=== PATIENT | male | born 1955 | race Caucasian/White ===

== ENCOUNTER 2020-08-22 07:32 | Outpatient (REF) | payer MEDICARE, SELFPAY ==
[2020-08-22 10:37] LABS: Alanine Aminotransferase 31 U/L (0-40); Aspartate Amino Transferase 36 U/L (5-37)
== END 2020-08-22 07:33 | disposition home or self-care (01) ==
LOC: HO.10HDL 07:32
PROVIDERS: Visit Provider Family Medicine
DX: R79.89 Other specified abnormal findings of blood chemistry (principal)
CPT/HCPCS: 36415; 84450; 84460

== ENCOUNTER 2020-11-14 09:21 | Outpatient (REF) | payer MEDICARE, SELFPAY ==
[2020-11-14 10:59] LABS: Alanine Aminotransferase 49 U/L (0-40); Anion Gap 15 (12-20); Blood Urea Nitrogen 13 mg/dL (9-16); Carbon Dioxide 24 mmol/L (22-29); Chloride 104 mmol/L (96-108); Estimated Glomerular Filt Rate > 60; Potassium 3.2 mmol/L (3.3-5.1); Sodium 140 mmol/L (135-145)
== END 2020-11-14 09:22 | disposition home or self-care (01) ==
LOC: HO.10HDL 09:21
PROVIDERS: Visit Provider Family Medicine
DX: I10 Essential (primary) hypertension (principal); E78.00 Pure hypercholesterolemia, unspecified; M10.9 Gout, unspecified; Z79.899 Other long term (current) drug therapy
CPT/HCPCS: 36415; 80051; 82550; 82565; 84460; 84520; 84550

== ENCOUNTER → 2021-03-05 07:00 | Outpatient (REF) | payer MEDICARE, SELFPAY ==
--- NOTE | 2021-03-05 | HM_ITS ---
Patient was monitored for total of 2 days and 22 hours. Baseline of normal sinus rhythm with average heart rate of 95 beats per minute with max heart 133 beats per minute No episodes of atrial fibrillation noted. Multiple short runs of SVT noted longest of 14 beats are consistent with SVT. Overall 1673 PACs with total burden of 0.42% consistent with rare PACs No patient reported events MTDD
== END ==
LOC: HO.CARD 07:00
PROVIDERS: PCP Family Medicine; Visit Provider Family Medicine
DX: I49.1 Atrial premature depolarization (principal)
CPT/HCPCS: 93242

== ENCOUNTER 2021-08-21 07:44 | Outpatient (REF) | payer MEDICARE, SELFPAY ==
[2021-08-21 10:27] LABS: Anion Gap 14 (12-20); Blood Urea Nitrogen 18 mg/dL (9-16); Carbon Dioxide 26 mmol/L (22-29); Chloride 105 mmol/L (96-108); Estimated Glomerular Filt Rate > 60; Potassium 3.2 mmol/L (3.3-5.1); Sodium 142 mmol/L (135-145)
== END 2021-08-21 07:45 | disposition home or self-care (01) ==
LOC: HO.10HDL 07:44
PROVIDERS: Visit Provider Family Medicine
DX: I10 Essential (primary) hypertension (principal)
CPT/HCPCS: 36415; 80051; 82565; 84520

== ENCOUNTER 2021-08-25 18:28 | Emergency (ER) | payer MEDICARE, SELFPAY ==
--- NOTE | ~2021-08-25 | CT_ITS ---
EXAMINATION: CT ABDOMEN AND PELVIS WITHOUT CONTRAST CLINICAL INFORMATION: Left inguinal hernia, tender COMPARISON: None TECHNIQUE: Multidetector volumetric imaging was performed from the superior aspect of the liver through the pubic symphysis. Sagittal and coronal reformatted images were obtained on the technologist's workstation. This CT examination was performed using dose optimization techniques as appropriate, variously including the following: *Automated exposure control *Adjustment of mA and/or kV according to patient size (this includes techniques or standardized protocols for targeted exams where dose is matched to indication/reason for exam; i.e. extremities or head) *Use of iterative reconstruction technique DLP: 583 mGy-cm FINDINGS: LUNG BASES: The visualized lung bases are unremarkable. LIVER, GALLBLADDER, AND BILIARY TREE: The liver is normal in size, shape, and attenuation. Subcentimeter hypodensity in the anterior liver is too small to characterize, suggestive of a cyst. No biliary ductal dilatation is present. The gallbladder is unremarkable with no evidence of radiopaque gallstones, gallbladder wall thickening, or obvious pericholecystic inflammatory changes. PANCREAS: A couple tiny pancreatic calcifications are noted. SPLEEN: Unremarkable. ADRENAL GLANDS: Unremarkable. KIDNEYS AND URETERS: No hydronephrosis or obstructing calculus bilaterally. Punctate calculus is noted in the lower left kidney. BLADDER: Unremarkable. GASTROINTESTINAL TRACT: There is suggestion of a small hiatal hernia. No evidence of bowel obstruction. No abnormal bowel wall thickening is seen. Short segment of sigmoid colon extends into a left inguinal hernia. No free fluid or free air is seen. ABDOMINAL WALL: Left inguinal hernia contains fat with mild stranding as well as a short segment of sigmoid colon. Fat-containing right inguinal hernia noted. LYMPH NODES: Normal. VASCULAR: Scattered atherosclerotic calcifications are noted. PELVIC VISCERA: Unremarkable. OSSEOUS STRUCTURES: Degenerative change is present in the spine at L1-L2 with disc space narrowing and vacuum disc phenomenon along with endplate osteophytes. CT/CT abdomen pelvis wo con IMPRESSION: 1. Left inguinal hernia containing a short segment of sigmoid colon. No associated obstruction or bowel wall thickening, though there is mild stranding within the fat. 2. Fat-containing right inguinal hernia. 3. Punctate left renal calculus. No hydronephrosis. Fleischner guidelines were followed.
[2021-08-25 18:50] VITALS: BP 130/83; PULSE 92; RESP 20; TEMP 37.3; O2SAT 96; BMI 28.1
[2021-08-25 20:04] LABS: MANUAL DIFF FLAG NO
[2021-08-25 20:05] LABS: Basophils Absolute Auto 0.1 X10*3/uL (0.0-0.2); Basophils Percent Auto 0.9 % (0-2); Eosinophils Absolute Auto 0.3 X10*3/uL (0.0-0.4); Hematocrit 39.2 % (42.0-52.0); Imm Gran Abs Auto 0.03 X10*3/uL (0.00-0.03); Imm Gran Pct Auto 0.2 % (0.0-0.4); Lymphocytes Absolute Auto 3.7 X10*3/uL (1.2-4.9); Lymphocytes Percent Auto 29.3 % (20-40); Mean Corpuscular HGB Conc 35.7 g/dl (31.0-36.0); Mean Corpuscular Hemoglobin 33.9 pg (27.0-33.0); Mean Corpuscular Volume 94.9 fL (80.0-98.0); Mean Platelet Volume 8.6 fL (9.4-12.4); Monocytes Absolute Auto 0.8 X10*3/uL (0.1-1.2); Monocytes Percent Auto 6.2 % (2-11); Neutrophils Absolute Auto 7.8 x10*3/uL (2.0-8.3); Neutrophils Percent Auto 61.4 % (45-73); Platelet Count 159 X10*3/uL (160-400); Red Blood Count 4.13 X10*6/uL (4.60-5.80); Red Cell Distribution Width 13.7 % (11.0-16.0); White Blood Count 12.7 X10*3/uL (4.8-10.8)
[2021-08-25 20:06] LABS: Appearance Urine CLEAR; Color Urine YELLOW; Glucose Urine UA NEG (NEG); Leukocyte Esterase Urine TRACE (NEG); Nitrite Urine NEG (NEG); PH 5.5 (5.0-8.0); UACC Culture Trigger YES; Urine Blood NEG (NEG); Urine Ketones NEG (NEG); Urine Protein NEG (NEG-TRACE)
[2021-08-25 20:17] LABS: RBC Urine 0 /HPF (0); WBC Urine 0 /HPF (0-4)
[2021-08-25 20:20] LABS: Alanine Aminotransferase 29 U/L (0-40); Albumin Level 4.5 g/dL (3.5-5.0); Alkaline Phosphatase 86 U/L (39-117); Anion Gap 14 (12-20); Aspartate Amino Transferase 39 U/L (5-37); Bilirubin Total 0.6 mg/dL (0.0-1.0); Blood Urea Nitrogen 12 mg/dL (9-16); Calcium 9.3 mg/dL (8.4-10.2); Carbon Dioxide 29 mmol/L (22-29); Chloride 101 mmol/L (96-108); Creatinine Clr Calc Pharmacy 49.8; Estimated Glomerular Filt Rate 48; Glucose Random 139 mg/dL (60-115); Potassium 3.4 mmol/L (3.3-5.1); Sodium 141 mmol/L (135-145); Total Protein 7.4 g/dL (6.5-8.0)
--- NOTE | 2021-08-25 22:41 | ED_ITS ---
HPI - Male Genitourinary General Chief complaint: Abdominal Pain Stated complaint: hernia Time Seen by Provider: 08/25/21 22:33 Source: patient Mode of arrival: ambulatory Limitations: no limitations History of Present Illness HPI Narrative: Patient's history of left inguinal hernia been repaired about 16 years ago no mesh was placed comes here as for last 2 days noticed the lump is coming back and was little tender prior to arrival today patient able to reduce it no significant pain now. No nausea no vomiting Related Data Allergies Allergy/AdvReac Type Severity Reaction Status Date / Time lisinopril [LISINOPRIL] Allergy Unknown RASH Verified 08/25/21 18:57 prednisone [PREDNISONE] Allergy Unknown INSOMNIA, Verified 08/25/21 18:57 insominia Review of Systems Review of Systems: Yes all other systems are reviewed and are negative [facility] Past Medical History Medical History ETOH abuse Gout High cholesterol HTN (hypertension) Surgical History H/O hernia repair Social History Social History Advance Directives: No Advance Directives Information Provided: No Physical Exam Vital Signs: Vital Signs: Last Vital Signs Temp 99.1 F 08/25/21 18:50 Pulse 84 08/25/21 23:42 Resp 16 08/25/21 23:42 BP 141/83 H 08/25/21 23:42 Pulse Ox 99 08/25/21 23:42 BMI result Body Mass Index 28.1 Appearance: Alert. Oriented X3. No acute distress. ETOH Eyes: PERRLA, No Nystagmus ENT: Pharynx normal. Oral Mucosa moist Neck: Normal inspection. Neck supple. CVS: Normal heart rate and rhythm. Pulses normal. Respiratory: No respiratory distress. Equal air entry bilateral, no wheezing/rales/rhonchi Abdomen: Soft and nontender. Bowel sounds are present, no mass palpable, no CVA tenderness small reducible left inguinal direct hernia no tenderness noticed skin color intact Skin: Skin warm and dry. Normal skin color. Normal skin turgor. Extremities: No lower extremity edema. No calf tenderness Neuro: Oriented X 3. MDM - Male Genitourinary MDM Narrative Medical decision making narrative: Patient with small left direct inguinal hernia which is reducible CT scan showed small segment of sigmoid colon with slight stranding of the fat around it. Patient denies significant pain at this time discharge patient home advised to follow-up with surgeon Lab Data Attestation: I reviewed the patient's lab results. Result diagrams: 08/25/21 20:00 08/25/21 20:00 Labs: Lab Results 08/25/21 08/25/21 08/25/21 Range/Units 19:01 20:00 20:00 WBC 12.7 H (4.8-10.8) X10*3/uL RBC 4.13 L (4.60-5.80) X10*6/uL Hgb 14.0 (14.0-18.0) g/dl Hct 39.2 L (42.0-52.0) % MCV 94.9 (80.0-98.0) fL MCH 33.9 H (27.0-33.0) pg MCHC 35.7 (31.0-36.0) g/dl RDW 13.7 (11.0-16.0) % Plt Count 159 L (160-400) X10*3/uL MPV 8.6 L (9.4-12.4) fL Immature Gran % (Auto) 0.2 (0.0-0.4) % Neut % (Auto) 61.4 (45-73) % Lymph % (Auto) 29.3 (20-40) % [place] % (Auto) 6.2 (2-11) % Eos % (Auto) 2.0 (0-4) % Baso % (Auto) 0.9 (0-2) % Lymph # (Auto) 3.7 (1.2-4.9) X10*3/uL [place] # (Auto) 0.8 (0.1-1.2) X10*3/uL Eos # (Auto) 0.3 (0.0-0.4) X10*3/uL Baso # (Auto) 0.1 (0.0-0.2) X10*3/uL Abs Immat Gran (auto) 0.03 (0.00-0.03) X10*3/uL Absolute Neuts (auto) 7.8 (2.0-8.3) x10*3/uL Absolute Nucleated RBC 0.000 (0.0-0.012) X10*3/uL Nucleated RBC % (auto) 0.0 (0.0-0.2) /100WBC Sodium 141 (135-145) mmol/L Potassium 3.4 (3.3-5.1) mmol/L Chloride 101 (96-108) mmol/L Carbon Dioxide 29 (22-29) mmol/L Anion Gap 14 (12-20) BUN 12 (9-16) mg/dL Creatinine 1.45 H (0.5-1.4) mg/dL Estim Creat Clear Calc 49.8 Estimated GFR 48 Random Glucose 139 H (60-115) mg/dL Calcium 9.3 (8.4-10.2) mg/dL Total Bilirubin 0.6 (0.0-1.0) mg/dL AST 39 H (5-37) U/L ALT 29 (0-40) U/L Alkaline Phosphatase 86 (39-117) U/L Total Protein 7.4 (6.5-8.0) g/dL Albumin 4.5 (3.5-5.0) g/dL Urine Color Urine Appearance Urine pH (5.0-8.0) Ur Specific [place] (1.005-1.025) Urine Protein (NEG-TRACE) MG/DL Urine Glucose (UA) (NEG) MG/DL Urine Ketones (NEG) MG/DL Urine Blood (NEG) Urine Nitrite (NEG) Ur Leukocyte Esterase (NEG) Urine RBC (0) /HPF Urine WBC (0-4) /HPF Ur Squamous Epith Cells /LPF Urine Bacteria /LPF Ethyl Alcohol 262 mg/dL /12/11 Range/Units 20:00 WBC (4.8-10.8) X10*3/uL RBC (4.60-5.80) X10*6/uL Hgb (14.0-18.0) g/dl Hct (42.0-52.0) % MCV (80.0-98.0) fL MCH (27.0-33.0) pg MCHC (31.0-36.0) g/dl RDW (11.0-16.0) % Plt Count (160-400) X10*3/uL MPV (9.4-12.4) fL Immature Gran % (Auto) (0.0-0.4) % Neut % (Auto) (45-73) % Lymph % (Auto) (20-40) % [place] % (Auto) (2-11) % Eos % (Auto) (0-4) % Baso % (Auto) (0-2) % Lymph # (Auto) (1.2-4.9) X10*3/uL [place] # (Auto) (0.1-1.2) X10*3/uL Eos # (Auto) (0.0-0.4) X10*3/uL Baso # (Auto) (0.0-0.2) X10*3/uL Abs Immat Gran (auto) (0.00-0.03) X10*3/uL Absolute Neuts (auto) (2.0-8.3) x10*3/uL Absolute Nucleated RBC (0.0-0.012) X10*3/uL Nucleated RBC % (auto) (0.0-0.2) /100WBC Sodium (135-145) mmol/L Potassium (3.3-5.1) mmol/L Chloride (96-108) mmol/L Carbon Dioxide (22-29) mmol/L Anion Gap (12-20) BUN (9-16) mg/dL Creatinine (0.5-1.4) mg/dL Estim Creat Clear Calc Estimated GFR Random Glucose (60-115) mg/dL Calcium (8.4-10.2) mg/dL Total Bilirubin (0.0-1.0) mg/dL AST (5-37) U/L ALT (0-40) U/L Alkaline Phosphatase (39-117) U/L Total Protein (6.5-8.0) g/dL Albumin (3.5-5.0) g/dL Urine Color YELLOW Urine Appearance CLEAR Urine pH 5.5 (5.0-8.0) Ur Specific [place] 1.010 (1.005-1.025) Urine Protein NEG (NEG-TRACE) MG/DL Urine Glucose (UA) NEG (NEG) MG/DL Urine Ketones NEG (NEG) MG/DL Urine Blood NEG (NEG) Urine Nitrite NEG (NEG) Ur Leukocyte Esterase TRACE H (NEG) Urine RBC 0 (0) /HPF Urine WBC 0 (0-4) /HPF Ur Squamous Epith Cells NONE /LPF Urine Bacteria NONE /LPF Ethyl Alcohol mg/dL Discharge Plan Discharge Clinical Impression: Inguinal hernia of left side without obstruction or gangrene Patient Disposition: Home, Self-Care Instructions: Inguinal Hernia (ED) Additional Instructions: Avoid straining Try to push the hernia back as soon as possible Report to the ER if severe pain at the hernia site/vomiting Follow-up with surgeon for surgery Referrals: Paddy Bergman MD [Physician] - 1 week Interventions: ED Discharge Assessment Last Done: 08/26/21 00:28 Discharge Date/Time: 08/26/21 00:29
[2021-08-25 23:29] LABS: Ethanol 262 mg/dL
[2021-08-25 23:42] VITALS: BP 141/83; PULSE 84; RESP 16; O2SAT 99
== END 2021-08-26 00:29 | disposition home or self-care (01) ==
PROVIDERS: Emergency Provider Internal Medicine
DX: K40.90 Unilateral inguinal hernia, without obstruction or gangrene, not specified as recurrent (principal); R10.9 Unspecified abdominal pain; Z79.899 Other long term (current) drug therapy
CPT/HCPCS: 36415; 74176; 80053; 81001; 82077; 85025; 87086; 99283

== ENCOUNTER → 2021-09-17 08:50 | Outpatient (BNVA) | payer MEDICARE, SELFPAY | PROVIDERS: PCP Family Medicine; Referring Provider Family Medicine; Visit Provider Surgery | DX: K40.91 Unilateral inguinal hernia, without obstruction or gangrene, recurrent (principal) | CPT/HCPCS: 99212 ==

== ENCOUNTER 2021-10-16 05:57 | Day surgery (SDC) | payer MEDICARE, SELFPAY ==
[2021-10-10 12:16] VITALS: BMI 27.8
--- NOTE | 2021-10-16 07:34 | MHC.SHP ---
Pre-Procedural Eval Section A Date of Service: 10/16/21 The patient is an INPATIENT: No Changes since office visit: Yes Patient answered all questions; No Cold of Flu in the past 2 weeks, No New Medical Problems and No Changes in Medication The History & Physical has been completed within 30 days and I have reviewed it.: Yes Section B Chief Complaint: Unilateral inguinal hernia, without obstruction Allergies: Allergies Allergy/AdvReac Type Severity Reaction Status Date / Time lisinopril [LISINOPRIL] Allergy Unknown RASH Verified 10/10/21 12:02 prednisone [PREDNISONE] Allergy Unknown INSOMNIA, Verified 10/10/21 12:02 insominia Plan Diagnosis/Plan: Unchanged I have reviewed the history and physical and performed a pertinent physical examination on my patient. No changes have occurred unless specified.
--- NOTE | 2021-10-16 07:38 | HO.ANESPROP2 ---
[facility] Active Problems Active Problems: All Active Problems (Updated 10/10/21 @ 12:01 by Marlyn Sandoval RN) Recurrent left inguinal hernia (Acute) Past Medical History Medical History ETOH abuse GERD (gastroesophageal reflux disease) Gout Hiatal hernia High cholesterol HTN (hypertension) On beta jennifer at home Functional capacity: independent ambulation Family History Family History Mother History of breast cancer Family history of problems with anesthesia: No Surgical History Surgical History H/O hernia repair History of appendectomy History of esophagogastroduodenoscopy (EGD) History of Problems with Anesthesia: No Social History Social History Are you a primary career law clerk to a significant other at home: No Do you presently have visiting nurse or other home services: No Patient Tobacco Use Status: Never used Tobacco Use of substances other than those prescribed or required for medical reasons: No Have you been hit, kicked, punched, or otherwise hurt by someone within the past year? If so, by whom?: No Are you DNR?: No Advance Directives: No Advance Directives Information Provided: No Advance Directives on File: No Recently lost weight without trying: No Eating poorly because of decreased appetite: No Nutrition Risks: No Nutritional Risk Meds Allergies Allergy/AdvReac Type Severity Reaction Status Date / Time lisinopril [LISINOPRIL] Allergy Unknown RASH Verified 10/10/21 12:02 prednisone [PREDNISONE] Allergy Unknown INSOMNIA, Verified 10/10/21 12:02 insominia Active Medications: Current Medications Lactated Ringer's (Lr) 1,000 mls @ 100 mls/hr IVCONT .Q10H [facility] Home Medications Medication Instructions Recorded Confirmed Last Taken Type allopurinol 300 mg tablet 300 mg PO DAILY 09/17/21 10/10/21 Unknown History furosemide 20 mg tablet 20 mg PO DAILY 09/17/21 10/10/21 Unknown History metoprolol succinate 50 mg 50 mg PO DAILY 09/17/21 10/10/21 10/16/21 History tablet,extended release 24 hr omeprazole 20 mg capsule,delayed 20 mg PO DAILY 09/17/21 10/10/21 10/16/21 History release simvastatin 40 mg tablet 40 mg PO BEDTIME 09/17/21 10/10/21 Unknown History Exam Exam Date and Time: October 16, 2021 0738 Height,Weight and Vital Signs: Height 5 ft 7.75 in Weight 82.554 kg Airway Mallampati Class: III TM Dist: >3cm Neck ROM: Full Heart: RRR Lungs: CTA Assessment and Plan Final Anesthetic Review Family History of Problems with Anesthesia: No History of Problems with Anesthesia: No NPO: Yes ASA Class: III Final Preanesthetic Review: No Changes in Pt Med Stat, Meds/Allgs Chart Reviewed, Consent Obtained/Reviewed and Anes Risks/Benef Reviewed Patient Risk: Intermediate Procedure Risk: Low Anesthetic Plan Disposition: Standard PACU
--- NOTE | 2021-10-16 08:35 | W.PM.OPN ---
Operative Note Operative Note Date of Service: 10/16/21 Narrative: Preoperative diagnosis:Recurrent left inguinal hernia Postoperative diagnosis:same Procedure:Repair of recurrent left inguinal hernia with mesh Surgeon: Carlos Diaz MD Ordering Machine Operator: Kristy South PA-C Anesthesia:general LMA Indications for procedure:84 year old male patient presenting with a previous history of a left inguinal hernia repair performed without mesh now presenting with a recurrent hernia on the left side. Operative findings: Recurrent indirect left inguinal hernia repaired with an extended large PHS mesh Specimen: None Estimated blood loss: 2 mL Complications: None Procedure details: Patient was brought to the OR placed in a supine position. After administering general anesthesia the patient's abdomen was prepped with ChloraPrep and draped in a sterile fashion. A surgical time-out was called the consent confirmed. Patient received preoperative antibiotics and Venodyne boots were in place. Local anesthesia consisting of 0.25% Sensorcaine was then infiltrated over the left inguinal ligament. Incision was then made parallel to the inguinal ligament carried out through subcutaneous tissue, past Isaias's fashion up to the external oblique aponeurosis. This was then incised with a scalpel wide with the Metzenbaum scissors. Spermatic cord was then dissected from the surrounding inguinal canal. There was a significant amount of adhesions due to previous surgery. A large indirect hernia was identified but no hernia sac. A small amount of fat within the face which was reduced into the abdominal cavity. A preperitoneal space was then created using an open Ray-Zaynab sponge. A large extended PHS mesh was then obtained. The circular underlay was then deployed within the preperitoneal space. The overlay was then secured to the pubic tubercle, conjoined tendon, and shelving edge of the inguinal ligament using 0 Polysorb suture. A slit was made in the mesh and the mesh wrapped around the spermatic cord at the internal ring. This was then secured to the shelving edge again using the 0 Polysorb suture. Wounds were then irrigated thoroughly with saline solution and suctioned dry. 5.5 ml of Zenrelef was then infiltrated over the mesh. The external oblique aponeurosis then closed using a running 2 0 Polysorb suture. Another 5 mL of Zenrelef was then applied over the external oblique aponeurosis. Isaias's fascia was then closed using interrupted 3-0 Polysorb sutures. Dermis was reapproximated using interrupted 3-0 Polysorb sutures. Skin was then closed using a running subcuticular 4-0 Polysorb suture. Steri-Strips, 2 x 2 gauze and Tegaderm were then applied. The patient tolerated the procedure well. Sponge, instrument, and needle counts reported as correct. Patient was transferred to PACU in stable condition.
[2021-10-16 08:40] VITALS: BP 155/95; PULSE 82; RESP 16; TEMP 36.4; O2SAT 97
[2021-10-16 08:45] VITALS: BP 158/98; PULSE 74; RESP 16; O2SAT 96
[2021-10-16 08:50] VITALS: BP 165/90; PULSE 78; RESP 16; O2SAT 97
[2021-10-16 08:55] VITALS: BP 169/99; PULSE 78; RESP 16; O2SAT 97
[2021-10-16 09:11] VITALS: BP 157/93; PULSE 75; RESP 16; O2SAT 97
== END 2021-10-16 09:40 | disposition home or self-care (01) ==
PROVIDERS: Visit Provider Surgery
PROC: (CPT 49520; principal; 2021-10-16 07:30)
DX: K40.91 Unilateral inguinal hernia, without obstruction or gangrene, recurrent (principal); K66.0 Peritoneal adhesions (postprocedural) (postinfection); F10.10 Alcohol abuse, uncomplicated; I10 Essential (primary) hypertension; M10.9 Gout, unspecified; Z79.899 Other long term (current) drug therapy; Z88.8 Allergy status to other drugs, medicaments and biological substances
CPT/HCPCS: 49520; C1781; C9399; J0690; J1100; J1885; J2250; J2405; J3010

== ENCOUNTER → 2021-10-24 09:03 | Outpatient (BNVA) | payer MEDICARE, SELFPAY | PROVIDERS: Visit Provider Surgery | DX: Z48.815 Encounter for surgical aftercare following surgery on the digestive system (principal); Z87.19 Personal history of other diseases of the digestive system | CPT/HCPCS: 99212 ==

== ENCOUNTER 2022-04-23 07:32 | Outpatient (REF) | payer MEDICARE, SELFPAY ==
[2022-04-23 10:51] LABS: Anion Gap 16 (12-20); Blood Urea Nitrogen 11 mg/dL (9-16); Carbon Dioxide 27 mmol/L (22-29); Chloride 101 mmol/L (96-108); Estimated Glomerular Filt Rate > 60; Potassium 2.8 mmol/L (3.3-5.1); Sodium 141 mmol/L (135-145)
== END 2022-04-23 07:33 | disposition home or self-care (01) ==
LOC: HO.10HDL 07:32
PROVIDERS: Visit Provider Family Medicine
DX: I10 Essential (primary) hypertension (principal)
CPT/HCPCS: 36415; 80051; 82565; 84520

== ENCOUNTER 2023-03-24 08:07 | Outpatient (REF) | payer MEDICARE, SELFPAY ==
[2023-03-24 11:42] LABS: Alanine Aminotransferase 31 U/L (0-40); Anion Gap 14 (12-20); Aspartate Amino Transferase 54 U/L (5-37); Blood Urea Nitrogen 12 mg/dL (9-16); Carbon Dioxide 25 mmol/L (22-29); Chloride 106 mmol/L (96-108); Estimated Glomerular Filt Rate > 60; Potassium 3.4 mmol/L (3.3-5.1); Sodium 142 mmol/L (135-145)
[2023-03-24 11:45] LABS: Magnesium 1.2 mg/dL (1.6-2.6)
[2023-03-30 22:58] LABS: FIB-ALT 28 U/L (9-46); FIB-Alpha-2-Macroglobulin 184 mg/dL (106-279); FIB-Apolipoprotein A1 185 mg/dL (94-176); FIB-GGT 729 U/L (3-70); FIB-Haptoglobin 182 mg/dL (43-212); FIB-Total Bilirubin 0.8 mg/dL (0.2-1.2); Liver Fibrosis Score 0.56; Liver Fibrosis Stage F2; Nec Inflam Act Grade A0-A1; Nec Inflam Act Score 0.18
== END 2023-03-24 08:08 | disposition home or self-care (01) ==
LOC: HO.10HDL 08:07
PROVIDERS: Visit Provider Family Medicine
DX: I10 Essential (primary) hypertension (principal); E78.00 Pure hypercholesterolemia, unspecified; R79.89 Other specified abnormal findings of blood chemistry; Z79.899 Other long term (current) drug therapy
CPT/HCPCS: 36415; 80051; 81596; 82550; 82565; 83735; 84450; 84460; 84520

== ENCOUNTER 2023-04-28 11:22 | Outpatient (AMB) | payer MEDICARE, SELFPAY ==
--- NOTE | 2023-04-28 11:23 | MHC.OFFVIS ---
Intake Vital Signs 04/28/23 11:36 Height 5 ft 7 in Weight 176 lb BMI 27.6 BP 140/80 H Blood Pressure Location Lt brachial Position Sitting Intake Visit Reasons: Possible hernia Intake Note: Patient is seen in office for evaluation and treatment of a hernia. Patient c/o: admits to lump in the right groin, onset 5 months, reducible, denies constipation or pain L OV: 10/24/22 surgery LIH: 10/16/22 Physician General Practice Required: No Accompanied by: Self / Same As Patient Allergies lisinopril [LISINOPRIL] Allergy (Unknown, Verified 04/28/23 11:36) RASH prednisone [PREDNISONE] Allergy (Unknown, Verified 04/28/23 11:36) INSOMNIA, insominia Medication List - Last Reconciled 04/28/23 by Carlos Diaz MD allopurinol 300 mg PO DAILY furosemide 20 mg PO DAILY metoprolol succinate ER 50 mg PO DAILY omeprazole 20 mg PO DAILY oxycodone-acetaminophen 5-325 mg (Endocet) 1 tab PO Q6H PRN simvastatin 40 mg PO BEDTIME HPI HPI Comments History of Present Illness Details 67-year-old male patient with a prior history of left inguinal hernia status post repair now presenting with a lump right groin. The lump present for several months and is increasing in size. He does report needing to push the hernia in due to some mild discomfort. He denies nausea, vomiting, fever or chills. He has had no previous repairs to the right groin. He is requesting repair of this new right inguinal hernia. PFSH Medical History On beta jennifer at home Hiatal hernia GERD (gastroesophageal reflux disease) Gout High cholesterol HTN (hypertension) ETOH abuse Surgical History History of esophagogastroduodenoscopy (EGD) History of appendectomy H/O hernia repair Family History Mother History of breast cancer Social History Are you a primary caregiver services home to a significant other at home: No Do you presently have visiting nurse or other home services: No Patient Tobacco Use Status: Never used Tobacco Review of Systems Const All systems reviewed & are unremarkable except as noted in HPI and below GI Reports as per HPI and Reports abdominal pain Physical Exam Const General: no acute distress and well developed Nutritional Appearance: well nourished Orientation/consciousness: patient oriented x3 Limitations: no limitations Resp Effort & Inspection: normal respiratory effort GI Other: Left inguinal incision is clean, dry, and intact. No hernias noted with Valsalva maneuvers. Right groin with a palpable lump which increases with Valsalva maneuvers but reduces with light pressure. No tenderness is elicited to palpation. Findings suggestive of a right inguinal hernia. Skin General skin exam: no rashes or lesions noted Neuro General: patient oriented x3 Extrem General: Yes no clubbing, cyanosis or edema Assessment & Plan Assessment & Plan (1) Reducible right inguinal hernia: Code(s): K40.90 - Unilateral inguinal hernia, without obstruction or gangrene, not specified as recurrent Plan 67-year-old male patient returning with a new right inguinal hernia. On examination the hernia is easily reducible with light pressure. The hernia does increase in size with Valsalva maneuvers. I recommended an elective repair of this right inguinal hernia with mesh. After discussion of the procedure, risks, and alternatives, he consents to the surgery. He will be scheduled as a short-stay surgery at his convenience. Coding Level of Care Code Est Pt Level 4 (38927) Diagnoses Reducible right inguinal hernia K40.90
[2023-04-28 11:36] VITALS: BP 140/80; BMI 27.6
== END 2023-04-28 12:26 | disposition home or self-care (01) ==
PROVIDERS: Visit Provider Surgery
DX: K40.90 Unilateral inguinal hernia, without obstruction or gangrene, not specified as recurrent (principal)
CPT/HCPCS: 99214

== ENCOUNTER → 2023-04-28 11:22 | Outpatient (BNVA) | payer MEDICARE, SELFPAY | PROVIDERS: Visit Provider Surgery | DX: K40.90 Unilateral inguinal hernia, without obstruction or gangrene, not specified as recurrent (principal) | CPT/HCPCS: 99212 ==

== ENCOUNTER 2023-06-01 06:01 | Day surgery (SDC) | payer MEDICARE, SELFPAY ==
[2023-05-28 07:36] VITALS: BMI 27.6
--- NOTE | 2023-05-29 08:51 | HO.ANESPROP2 ---
Documented by User: Monica Kaiser NP 05/29/23 08:53 HPI - Anesthesia Eval Consult details Narrative: 67yo M for Right Hernia Repair Inguinal w/mesh PMFSH Active Problems Active Problems: All Active Problems (Updated 04/28/23 @ 11:43 by Carlos Diaz MD) Reducible right inguinal hernia (Acute) Recurrent left inguinal hernia (Acute) Past Medical History Medical History On beta jennifer at home Hiatal hernia GERD (gastroesophageal reflux disease) Gout High cholesterol HTN (hypertension) ETOH abuse Family History Family History Mother History of breast cancer Family history of problems with anesthesia: No Surgical History Surgical History History of esophagogastroduodenoscopy (EGD) History of appendectomy H/O hernia repair History of Problems with Anesthesia: No Social History Social History Are you a primary pet care associate to a significant other at home: No Do you presently have visiting nurse or other home services: No Patient Tobacco Use Status: Never used Tobacco Use of substances other than those prescribed or required for medical reasons: No Are you DNR?: No Advance Directives: No Advance Directives Information Provided: Yes Meds Allergies Allergy/AdvReac Type Severity Reaction Status Date / Time lisinopril [LISINOPRIL] Allergy Unknown RASH Verified 06/01/23 06:15 prednisone [PREDNISONE] Allergy Unknown INSOMNIA, Verified 06/01/23 06:15 insominia Home Medications Medication Instructions Recorded Confirmed Last Taken Type allopurinol 300 mg tablet 300 mg PO DAILY 09/17/21 06/01/23 06/01/23 05:00 History furosemide 20 mg tablet 20 mg PO DAILY 09/17/21 06/01/23 Unknown History metoprolol succinate 50 mg 50 mg PO DAILY 09/17/21 06/01/23 06/01/23 05:00 History tablet,extended release 24 hr omeprazole 20 mg capsule,delayed 20 mg PO DAILY 09/17/21 06/01/23 06/01/23 05:00 History release simvastatin 40 mg tablet 40 mg PO BEDTIME 09/17/21 06/01/23 Unknown History Exam Height,Weight and Vital Signs: Height 5 ft 7 in Weight 79.832 kg Pertinent Lab Results Pertinent Lab Results: Laboratory Tests 08/25/21 03/24/23 20:00 08:15 WBC 12.7 H Hgb 14.0 Hct 39.2 L Plt Count 159 L Sodium 142 Potassium 3.4 D Chloride 106 Carbon Dioxide 25 BUN 12 Creatinine 0.94 Assessment and Plan Assessment Anesthesia Assessment: Chart Reviewed Final Anesthetic Review Family History of Problems with Anesthesia: No History of Problems with Anesthesia: No Documented by User: Eli Georges MD 06/01/23 07:13 PMFSH Past Medical History Medical History On beta jennifer at home Hiatal hernia GERD (gastroesophageal reflux disease) Gout High cholesterol HTN (hypertension) ETOH abuse Family History Family History Mother History of breast cancer Surgical History Surgical History History of esophagogastroduodenoscopy (EGD) History of appendectomy H/O hernia repair Social History Social History Are you a primary pet care associate to a significant other at home: No Do you presently have visiting nurse or other home services: No Patient Tobacco Use Status: Never used Tobacco Use of substances other than those prescribed or required for medical reasons: No Are you DNR?: No Advance Directives: No Advance Directives Information Provided: Yes Meds Allergies Allergy/AdvReac Type Severity Reaction Status Date / Time lisinopril [LISINOPRIL] Allergy Unknown RASH Verified 06/01/23 06:15 prednisone [PREDNISONE] Allergy Unknown INSOMNIA, Verified 06/01/23 06:15 insominia Home Medications Medication Instructions Recorded Confirmed Last Taken Type allopurinol 300 mg tablet 300 mg PO DAILY 09/17/21 06/01/23 06/01/23 05:00 History furosemide 20 mg tablet 20 mg PO DAILY 09/17/21 06/01/23 Unknown History metoprolol succinate 50 mg 50 mg PO DAILY 09/17/21 06/01/23 06/01/23 05:00 History tablet,extended release 24 hr omeprazole 20 mg capsule,delayed 20 mg PO DAILY 09/17/21 06/01/23 06/01/23 05:00 History release simvastatin 40 mg tablet 40 mg PO BEDTIME 09/17/21 06/01/23 Unknown History Exam Airway Mallampati Class: II TM Dist: >3cm Neck ROM: Full Heart: rrr Lungs: cta Assessment and Plan Assessment Anesthesia Assessment: Anesthesia Plan Discussed Final Anesthetic Review NPO: Yes ASA Class: III Final Preanesthetic Review: No Changes in Pt Med Stat, Meds/Allgs Chart Reviewed and Consent Obtained/Reviewed Patient Risk: Intermediate Procedure Risk: Intermediate Anesthetic Plan Anesthetic Plan: MAC: Disposition: Standard PACU
[2023-06-01] VITALS (7 sets, daily range): BP systolic 137–183; BP diastolic 82–105; PULSE 80–90; RESP 16–18; TEMP 36.3–36.6; O2SAT 96–98; BMI 27.6
[2023-06-01] MEDS: Lactated Ringers 1,000 ML 100 ML IVCONT (07:03)
--- NOTE | 2023-06-01 07:27 | MHC.SHP ---
Pre-Procedural Eval Section A Date of Service: 06/01/23 The patient is an INPATIENT: No Changes since office visit: Yes Patient answered all questions; No Cold of Flu in the past 2 weeks, No New Medical Problems and No Changes in Medication The History & Physical has been completed within 30 days and I have reviewed it.: No Section B Chief Complaint: Unilateral inguinal hernia, without obstruction or Details of Present Illness: No change in abdominal symptoms since previous examination Relevant Family History (Specify if Yes): No Relevant Social History: Alcohol Use Present Medications: see Short Stay Collaborative assessment Medical History: Significant History (HTN, Chol, Gout) History of Previous Operations: Relevant previous surgery/procedure and date(s) Allergies: Allergies Allergy/AdvReac Type Severity Reaction Status Date / Time lisinopril [LISINOPRIL] Allergy Unknown RASH Verified 06/01/23 06:15 prednisone [PREDNISONE] Allergy Unknown INSOMNIA, Verified 06/01/23 06:15 insominia Review of Systems Sugical H&P ROS: Negative: Constitution, Cardiovascular, Respiratory, Neurological, Psychiatric, Hem-Onc, Allergic/Immunologic, Gastrointestinal, Genitourinary, Musculoskeletal, Integumentary, Endocrine and Eyes/Ears/Nose/Throat Exam Surgical H&P Exam: Normal: HEENT, Normal: Heart, Normal: Lungs, Normal: Extremities, Normal: Abdomen (RIH reduced), Normal: Skin and Normal: Neurological Plan Diagnosis/Plan: Unchanged I have reviewed the history and physical and performed a pertinent physical examination on my patient. No changes have occurred unless specified. Time Spent With Patient Time: Total time managing care of this patient today ____ minutes.
--- NOTE | 2023-06-01 08:37 | W.PM.OPN ---
Operative Note Operative Note Date of Service: 06/01/23 Narrative: Preoperative diagnosis: Right inguinal hernia Postoperative diagnosis: Same Procedure: Repair of right inguinal hernia with mesh Surgeon: Carlos Diaz MD Automatic Spooler Operator: None Anesthesia: General LMA Indications for procedure: 67-year-old male patient presenting with a previous history of a left inguinal hernia now with a new right inguinal hernia, reducible with light pressure. Patient was found to have a moderate size indirect hernia. This was repaired using an extended large PHS mesh. Operative findings: Indirect right hernia Specimen: Lipoma of the cord Estimated blood loss: Less than 2 mL Complications: None Procedure details: Patient was brought to the OR placed in a supine position. After administering general anesthesia the patient's abdomen was prepped with ChloraPrep and draped in a sterile fashion. A surgical time-out was called the consent confirmed. Patient received preoperative antibiotics and Venodyne boots were in place. Local anesthesia consisting of 0.5% Sensorcaine plus lidocaine % with epinephrine was then infiltrated over the right inguinal ligament. Incision was then made with a scalpel carried out through subcutaneous tissue, past Isaias's fascia, and up to the external oblique aponeurosis. Additional local was then infiltrated below the external oblique aponeurosis. This was then incised with a scalpel wide with the Metzenbaum scissors. The spermatic cord was then dissected free from the inguinal canal and retracted using a Andrei drain. The floor of the inguinal canal was found to be intact without evidence of a direct hernia. Fibers of the cremaster muscle were then in a moderate size indirect hernia was then identified. In addition a lipoma of the cord was also identified. The sac was dissected down to the internal ring and then reduced into the abdominal cavity. In addition the lipoma was ligated and divided using a 2-0 Polysorb tie. A large extended PHS mesh was then obtained. The circular underlay was then deployed within the internal ring into the preperitoneal space. The overlay was then secured to the pubic tubercle, conjoined tendon, and shelving edge of the inguinal ligament using a 0 Polysorb suture. A slit was made in the mesh the mesh wrapped around the spermatic cord. Using the 0 Polysorb suture this was then secured to the shelving edge. The remaining of the lateral mesh was then placed below the external oblique aponeurosis. Wounds were then irrigated with saline solution and suctioned dry. External oblique aponeurosis was then closed using a running 2-0 Polysorb suture. Approximately 8 mL of Zenrelef was then infiltrated below the external oblique aponeurosis. Isaias's fascia and dermis were then reapproximated using interrupted 3-0 Polysorb sutures. Skin was closed using a running subcuticular 4-0 Polysorb suture. Steri-Strips, 2 x 2 gauze and Tegaderm were then applied. The patient tolerated the procedure well. Sponge, instrument, and needle counts reported as correct. The patient was transferred to PACU in stable condition.
[2023-06-01] MEDS: oxyCODONE HCl Immed Release 5 MG TABLET PO (09:03)
== END 2023-06-01 10:19 | disposition home or self-care (01) ==
PROVIDERS: PCP Family Medicine; Visit Provider Surgery
PROC: (CPT 49505; principal; 2023-06-01 07:30)
DX: K40.90 Unilateral inguinal hernia, without obstruction or gangrene, not specified as recurrent (principal); D17.6 Benign lipomatous neoplasm of spermatic cord; K21.9 Gastro-esophageal reflux disease without esophagitis; I10 Essential (primary) hypertension; E78.00 Pure hypercholesterolemia, unspecified; M10.9 Gout, unspecified; F10.10 Alcohol abuse, uncomplicated; Z79.899 Other long term (current) drug therapy; Z88.8 Allergy status to other drugs, medicaments and biological substances; Z98.890 Other specified postprocedural states
CPT/HCPCS: 49505; 88304; C1781; C9088; J0665; J0690; J1885; J2405; J2704; J3010

== ENCOUNTER → 2023-06-01 06:01 | Outpatient (BNV) | payer MEDICARE, SELFPAY | PROVIDERS: PCP Family Medicine; Visit Provider Surgery | DX: K40.91 Unilateral inguinal hernia, without obstruction or gangrene, recurrent (principal) | CPT/HCPCS: 49520 ==

== ENCOUNTER 2023-06-18 10:13 | Outpatient (AMB) | payer MEDICARE, SELFPAY ==
[2023-06-18 10:20] VITALS: BP 183/93; PULSE 86
--- NOTE | 2023-06-18 10:20 | MHC.OFFVIS ---
Intake Vital Signs 06/18/23 10:20 Weight 176 lb BP 183/93 H Blood Pressure Location Rt brachial Position Sitting Pulse 86 Intake Visit Reasons: S/P RIH w/mesh Intake Note: Patient is seen in office for post op assessment post right inguinal hernia repair on 06-01-23. Pt c/o: reports incisions healing well. Only walking a mile daily. Used to walking 10 miles per day. Seed Tester Required: No Accompanied by: Self / Same As Patient Allergies lisinopril [LISINOPRIL] Allergy (Unknown, Verified 06/18/23 10:22) RASH prednisone [PREDNISONE] Allergy (Unknown, Verified 06/18/23 10:22) INSOMNIA, insominia Medication List - Last Reconciled 06/18/23 by Carlos Diaz MD allopurinol 300 mg PO DAILY furosemide 20 mg PO DAILY metoprolol succinate ER 50 mg PO DAILY simvastatin 40 mg PO BEDTIME HPI HPI Comments History of Present Illness Details 67-year-old male patient returning following repair of a right inguinal hernia with mesh on 06/01/2023. He reports feeling well with occasional discomfort in the right groin. He has been walking approximately 0.5-1 miles daily but does get tired when walking. He denies any nausea, vomiting, fever, chills, diarrhea or constipation. He reports the dressing is still in place following the surgery. [facility] Medical History On beta jennifer at home Hiatal hernia GERD (gastroesophageal reflux disease) Gout High cholesterol HTN (hypertension) ETOH abuse Surgical History History of right inguinal hernia repair (06/01/23) History of oral surgery History of esophagogastroduodenoscopy (EGD) History of appendectomy H/O hernia repair Family History Mother History of breast cancer Social History Are you a primary acute care assistant to a significant other at home: No Do you presently have visiting nurse or other home services: No Patient Tobacco Use Status: Never used Tobacco Physical Exam Vital Signs: Last Vital Signs Pulse 86 06/18/23 10:20 BP 183/93 H 06/18/23 10:20 Const General: comfortable Nutritional Appearance: well nourished Orientation/consciousness: patient oriented x3 Resp Effort & Inspection: normal respiratory effort GI Other: Dressing removed, incision found to be well healed with intact Steri-Strips. No redness or discharge is identified. No hernia noted with Valsalva maneuvers. Inspection: Yes normal to inspection Palpation (GI): Soft to palpation, nontender, no guarding and not rigid Skin Other: Warm, dry, no rash Neuro General: patient oriented x3 Extrem Other: No edema Assessment & Plan Assessment & Plan (1) Reducible right inguinal hernia: Code(s): K40.90 - Unilateral inguinal hernia, without obstruction or gangrene, not specified as recurrent Plan 67-year-old male patient returning following repair of a right inguinal hernia with mesh approximately 2 weeks ago. His wounds are clean and intact without redness or discharge. There is no evidence of hernia recurrence. He should continue to avoid lifting greater than 10 lb and return approximately 1 month for follow-up examination. Coding Level of Care Code Global (28678) Diagnoses Reducible right inguinal hernia K40.90
== END 2023-06-18 10:28 | disposition home or self-care (01) ==
PROVIDERS: Visit Provider Surgery
DX: K40.90 Unilateral inguinal hernia, without obstruction or gangrene, not specified as recurrent (principal)
CPT/HCPCS: 99024

== ENCOUNTER → 2023-06-18 10:13 | Outpatient (BNVA) | payer MEDICARE, SELFPAY | PROVIDERS: Visit Provider Surgery | DX: Z48.815 Encounter for surgical aftercare following surgery on the digestive system (principal); Z98.890 Other specified postprocedural states | CPT/HCPCS: 99212 ==

== ENCOUNTER 2023-07-17 09:13 | Outpatient (AMB) | payer MEDICARE, SELFPAY ==
--- NOTE | 2023-07-17 09:23 | MHC.OFFVIS ---
Intake Vital Signs 07/17/23 09:35 Height 5 ft 7 in Weight 176 lb BMI 27.6 BP 190/100 H Blood Pressure Location Lt brachial Position Sitting Intake Visit Reasons: 1m S/P RIH w/mesh Intake Note: Patient is seen in office for one month follow up visit, post right inguinal hernia repair. Pt c/o: no concerns at the time of visit Superintendent Mechanical Required: No Accompanied by: Self / Same As Patient Allergies lisinopril [LISINOPRIL] Allergy (Unknown, Verified 07/17/23 09:36) RASH prednisone [PREDNISONE] Allergy (Unknown, Verified 07/17/23 09:36) INSOMNIA, insominia HPI HPI Comments History of Present Illness Details 67-year-old male patient returning approximately 1 month following repair of a right inguinal hernia with mesh on 08/02/2022. He feels well and denies any pain in the right groin. Feels ready to return to normal activity. PFSH Medical History On beta jennifer at home Hiatal hernia GERD (gastroesophageal reflux disease) Gout High cholesterol HTN (hypertension) ETOH abuse Surgical History History of right inguinal hernia repair (06/01/23) History of oral surgery History of esophagogastroduodenoscopy (EGD) History of appendectomy H/O hernia repair Family History Mother History of breast cancer Social History Are you a primary critical care physician assistant to a significant other at home: No Do you presently have visiting nurse or other home services: No Patient Tobacco Use Status: Never used Tobacco Physical Exam Vital Signs: Last Vital Signs BP 190/100 H 07/17/23 09:35 BMI result Body Mass Index 27.6 Const General: comfortable Nutritional Appearance: well nourished Orientation/consciousness: patient oriented x3 Resp Effort & Inspection: normal respiratory effort GI Other: Right inguinal incision is clean, dry, and intact with a normal healing ridge. No hernias noted with Valsalva maneuvers. Inspection: Yes normal to inspection Palpation (GI): Soft to palpation, nontender, no guarding and not rigid Skin Other: Warm, dry, no rash Neuro General: patient oriented x3 Extrem Other: No edema Assessment & Plan Assessment & Plan (1) Reducible right inguinal hernia: Code(s): K40.90 - Unilateral inguinal hernia, without obstruction or gangrene, not specified as recurrent Plan 67-year-old male patient status post repair of a right inguinal hernia with mesh. He tolerated the procedure well and her wounds are healing nicely. He may resume normal activity without restrictions and should follow up as needed. Coding Level of Care Code Global (62384) Diagnoses Reducible right inguinal hernia K40.90
[2023-07-17 09:35] VITALS: BP 190/100; BMI 27.6
== END 2023-07-17 09:38 | disposition home or self-care (01) ==
PROVIDERS: Visit Provider Surgery
DX: K40.90 Unilateral inguinal hernia, without obstruction or gangrene, not specified as recurrent (principal)
CPT/HCPCS: 99024

== ENCOUNTER → 2023-07-17 09:13 | Outpatient (BNVA) | payer MEDICARE, SELFPAY | PROVIDERS: Visit Provider Surgery | DX: Z09 Encounter for follow-up examination after completed treatment for conditions other than malignant neoplasm (principal); Z87.19 Personal history of other diseases of the digestive system | CPT/HCPCS: 99212 ==

== ENCOUNTER 2023-10-26 10:38 | Outpatient (REF) | payer MEDICARE, SELFPAY ==
--- NOTE | ~2023-10-26 | XR_ITS ---
EXAMINATION: XR CHEST CLINICAL INFORMATION: Shortness of breath COMPARISON: None available. TECHNIQUE: 2 views of the chest were obtained. FINDINGS: vascularity. LUNGS: Lungs are clear. No pneumothorax is seen. BONES: Bony skeleton is intact. XR/XR chest 2V IMPRESSION: Normal chest x-ray.
== END 2023-10-26 10:39 | disposition home or self-care (01) ==
LOC: HO.XRAY 10:38
PROVIDERS: PCP Family Medicine; Visit Provider Family Medicine
DX: R05.9 Cough, unspecified (principal); R53.81 Other malaise
CPT/HCPCS: 71046

== ENCOUNTER 2023-11-17 09:16 | Outpatient (REF) | payer MEDICARE, SELFPAY ==
[2023-11-17 09:37] LABS: MANUAL DIFF FLAG NO
--- NOTE | 2023-11-17 09:57 | ECG_ITS ---
Test Reason : PALPITATIONS Blood Pressure : / mmHG Vent. Rate : 089 BPM Atrial Rate : 089 BPM P-R Int : 148 ms QRS Dur : 084 ms QT Int : 348 ms P-R-T Axes : 016 -17 095 degrees QTc Int : 423 ms Normal sinus rhythm Nonspecific ST and T wave abnormality Abnormal ECG No previous ECGs available Referred By: Brian Macias Electronically Signed By:LAVON GREENE
[2023-11-17 10:22] LABS: Basophils Absolute Auto 0.2 X10*3/uL (0.0-0.2); Basophils Percent Auto 1.7 % (0-2); Eosinophils Absolute Auto 0.2 X10*3/uL (0.0-0.4); Eosinophils Percent Auto 1.5 % (0-4); Hematocrit 38.3 % (42.0-52.0); Hemoglobin 13.2 g/dl (14.0-18.0); Imm Gran Abs Auto 0.04 X10*3/uL (0.00-0.03); Imm Gran Pct Auto 0.4 % (0.0-0.4); Lymphocytes Absolute Auto 1.2 X10*3/uL (1.2-4.9); Mean Corpuscular HGB Conc 34.5 g/dl (31.0-36.0); Mean Corpuscular Hemoglobin 34.8 pg (27.0-33.0); Mean Corpuscular Volume 101.1 fL (80.0-98.0); Mean Platelet Volume 9.2 fL (9.4-12.4); Monocytes Absolute Auto 0.9 X10*3/uL (0.1-1.2); Monocytes Percent Auto 8.4 % (2-11); Neutrophils Absolute Auto 7.8 x10*3/uL (2.0-8.3); Platelet Count 130 X10*3/uL (160-400); Red Blood Count 3.79 X10*6/uL (4.60-5.80); Red Cell Distribution Width 12.9 % (11.0-16.0); White Blood Count 10.3 X10*3/uL (4.8-10.8)
[2023-11-17 11:12] LABS: Erythrocyte Sedimentation Rate 7 MM/HR (0-15)
[2023-11-17 11:17] LABS: Alanine Aminotransferase 25 U/L (0-40); Albumin Level 4.2 g/dL (3.5-5.0); Alkaline Phosphatase 101 U/L (39-117); Anion Gap 14 (12-20); Aspartate Amino Transferase 44 U/L (5-37); Bilirubin Total 1.1 mg/dL (0.0-1.0); Blood Urea Nitrogen 13 mg/dL (9-16); Calcium 9.8 mg/dL (8.4-10.2); Carbon Dioxide 27 mmol/L (22-29); Chloride 105 mmol/L (96-108); Estimated Glomerular Filt Rate > 60; Glucose Fasting 138 mg/dL (60-99); Potassium 3.8 mmol/L (3.3-5.1); Sodium 142 mmol/L (135-145); Total Protein 7.1 g/dL (6.5-8.0)
[2023-11-17 11:23] LABS: Free T4 (Free Thyroxine) 0.96 ng/dL (0.71-1.85)
== END 2023-11-17 09:17 | disposition home or self-care (01) ==
LOC: HO.LAB 09:16
PROVIDERS: PCP Family Medicine; Visit Provider Family Medicine
DX: R53.83 Other fatigue (principal); R63.4 Abnormal weight loss; E78.00 Pure hypercholesterolemia, unspecified; Z79.899 Other long term (current) drug therapy
CPT/HCPCS: 36415; 80053; 82550; 84439; 85025; 85652; 93005

== ENCOUNTER → 2023-11-17 09:57 | Outpatient (BNV) | payer MEDICARE, SELFPAY | PROVIDERS: PCP Family Medicine; Visit Provider Internal Medicine | DX: R94.31 Abnormal electrocardiogram [ECG] [EKG] (principal) | CPT/HCPCS: 93010 ==

== ENCOUNTER 2023-12-05 14:19 | Emergency (ER) | payer MEDICARE, SELFPAY ==
--- NOTE | ~2023-12-05 | XR_ITS ---
EXAMINATION: XR CHEST CLINICAL INFORMATION: Cough COMPARISON: Chest radiograph 10/26/2023 TECHNIQUE: Frontal view of the chest was obtained. FINDINGS: Decreased lung volumes with streaky bibasilar reticular opacities. No confluent consolidation. No pleural effusion or pneumothorax. Cardiomediastinal silhouette is unchanged. XR/XR chest 1V IMPRESSION: Streaky bibasilar opacities, likely atelectasis in the setting of low lung volumes, though and element of atypical infection or aspiration could appear similar. No confluent consolidation.
--- NOTE | ~2023-12-05 | CT_ITS ---
EXAMINATION: CT HEAD WITHOUT CONTRAST CLINICAL INFORMATION: Confusion unknown fall COMPARISON: None available. TECHNIQUE: Contiguous axial imaging was performed from the skull base to vertex without intravenous administration of contrast. This CT examination was performed using dose optimization techniques as appropriate, variously including the following: *Automated exposure control *Adjustment of mA and/or kV according to patient size (this includes techniques or standardized protocols for targeted exams where dose is matched to indication/reason for exam; i.e. extremities or head) *Use of iterative reconstruction technique DLP: 708 mGy-cm FINDINGS: There is no evidence of acute intracranial hemorrhage or territorial infarction. Chronic white matter small vessel ischemic changes. Mild cerebral atrophy. No abnormal mass effect or midline shift is seen. [place] to white matter differentiation is well preserved. No extra-axial fluid collections are identified. The ventricles are normal in size. There is no abnormal attenuation within the brain parenchyma. The osseous structures and soft tissues are normal. Mucoperiosteal thickening of the bilateral maxillary, ethmoid, and right sphenoid sinus. The mastoid air cells and visualized portions of the paranasal sinuses are well aerated. A sclerotic calcifications. CT/CT head/brain wo IV con IMPRESSION: 1. No acute intracranial pathology. 2. Chronic white matter small vessel ischemic changes.
[2023-12-05 14:22] VITALS: BP 139/88; PULSE 104; RESP 20; TEMP 36.4; O2SAT 97; BMI 26.2
--- NOTE | 2023-12-05 14:22 | ED_ITS ---
HPI - Altered Mental Status General Chief Complaint: Altered Mental Status Stated Complaint: AMS Time Seen by Provider: 12/05/23 17:01 Source: patient, family, RN notes reviewed and old records reviewed Mode of arrival: ambulatory Limitations: other (Alcohol intoxication) History of Present Illness ED Provider: Cristofer HPI narrative: 68-year-old male with past medical history significant for hypertension, hyperlipidemia, GERD, gout presents for evaluation of weakness. Per the patient's daughter and who are bedside, the patient has had increased weakness for the last 4 days He reports that he used to walk up to 8-10 miles per day Over last few months he has been unable to do this and gets weak and unable to even get up the stairs. He denies any pain at all. He endorses a cough that is worse in the morning that has been present for about 2 months He reports he saw his primary doctor about a month ago and had a chest x-ray and was told everything was ?normal. ? Patient seems to think that his symptoms started after returning from [place] 3 months ago He denies any fevers, chills, chest pain, abdominal pain, nausea vomiting The patient states that he drinks 2-3 times per week. Per his daughter, the patient drinks daily The patient has a history of alcohol withdrawal He has a brain MRI pending but is not scheduled yet Related Data Home Medications ?Medication ?Instructions ?Recorded ?Confirmed allopurinol 300 mg tablet 300 mg PO DAILY 09/17/21 06/18/23 furosemide 20 mg tablet 20 mg PO DAILY 09/17/21 06/18/23 metoprolol succinate 50 mg 50 mg PO DAILY 09/17/21 06/18/23 tablet,extended release 24 hr simvastatin 40 mg tablet 40 mg PO BEDTIME 09/17/21 06/18/23 Previous Rx's ?Medication ?Instructions ?Recorded amoxicillin 875 mg-potassium 1 tab PO Q12H #13 tabs 12/05/23 clavulanate 125 mg tablet azithromycin 250 mg tablet 250 mg PO DAILY 4 days #4 tabs 12/05/23 Allergies Allergy/AdvReac Type Severity Reaction Status Date / Time lisinopril [LISINOPRIL] Allergy Unknown RASH Verified 12/05/23 14:29 prednisone [PREDNISONE] Allergy Unknown INSOMNIA, Verified 12/05/23 14:29 insominia Review of Systems 2 Constitutional: Constitutional: Denies body ache(s), Denies chills, Reports frequent falls, Denies headache(s), Reports lethargy and Reports weakness Eyes: Eyes: Denies blurry vision ENT: Denies vertigo, Denies dizziness and Denies headache(s) Cardiovascular: Cardiovascular: Denies chest pain and Denies dyspnea Respiratory: Respiratory: Denies chest congestion, Reports cough and Denies dyspnea Gastrointestinal: Gastrointestinal: Denies abdominal pain, Denies nausea and Denies vomiting Genitourinary: Genitourinary: Denies dysuria Musculoskeletal: Musculoskeletal: Denies back pain Integumentary/Breasts: Skin/Breast: Denies rash Neurologic: Denies vertigo, Denies dizziness, Reports frequent falls, Denies headache(s) and Reports weakness Psychiatric: Psychiatric: Denies anxiety PMFSH Past Medical History Medical History On beta jennifer at home Hiatal hernia GERD (gastroesophageal reflux disease) Gout High cholesterol HTN (hypertension) ETOH abuse Surgical History History of right inguinal hernia repair (06/01/23) History of oral surgery History of esophagogastroduodenoscopy (EGD) History of appendectomy H/O hernia repair Family History Family History Mother History of breast cancer Social History Social History Are you a primary care management associate to a significant other at home: No Do you presently have visiting nurse or other home services: No Alcohol intake: current Alcohol intake frequency: 3 or more drinks per day Alcohol type: hard liquor Patient Tobacco Use Status: Never used Tobacco Smoked in Last 30 Days: No Use of substances other than those prescribed or required for medical reasons: No Advance Directives: No Advance Directives Information Provided: Yes Physical Exam ED Vital Signs: Vital Signs - 24 hr 12/05/23 14:22 12/05/23 17:43 Temperature 97.6 F 97.6 F Pulse Rate 104 H 98 Respiratory Rate 20 18 Blood Pressure 139/88 139/88 Pulse Oximetry 97 97 Oxygen Delivery Method Room Air Room Air BMI result Body Mass Index 26.2 Const General: healthy appearing, comfortable, no acute distress, alert and awake Nutritional Appearance: well nourished Orientation/consciousness: patient oriented x3 HENMT Head: Yes normocephalic and Yes atraumatic Eyes Eyelids: Yes eyelids normal Conjunctivae: conjunctivae normal Sclerae: sclerae normal Corneas: corneas normal Pupils: Equal, round and reactive pupils present EOM: EOMs intact bilaterally Neck Neck: Yes full ROM Resp Effort & Inspection: normal respiratory effort, able to speak in complete sentences, no audible wheezes and not labored Auscultation: clear to auscultation bilaterally Cardio Rate: regular rate Rhythm: regular rhythm GI Inspection: No distended Palpation (GI): Soft to palpation, not firm, nontender, no guarding and not rigid Skin General skin exam: elasticity normal Neuro General: patient oriented x3 Cranial nerves: Yes CN's II-XII intact bilaterally, Yes Equal, round and reactive pupils present and Yes Bilaterally intact EOM present Cognition (Neuro): normal cognition Extrem Other: Moving all extremities well without any obvious deformities Course Course Course Narrative: This is a Rapid Medical Examination (RME) performed by Flaco Arrington PA-C in triage. Full HPI, ROS, assessment and treatment plan per primary provider in the Main ED. 68 yo male with history of alcohol use disorder, actively drinking large amount of vodka, possible Parkinson's disease getting workup with Dr. Macias who is his PCP - presents to the ER for evaluation of confusion and lethargy for the last 4 days ago. Vomiting with urinary incontinence at home. Passed out on the floor at home, too weak to walk. Called his daughter his mother who has been for 40 years. Patient cried and said he was going to . Awake, alert in triage, confused. Endorses drank 1 shot of vodka today. Plan: CT head, labs, CXR, EKG Medications Administered Discontinued Medications Generic Name Dose Route Start Last Admin Trade Name Freq PRN Reason Stop Dose Admin Amoxicillin/Clavulanate Potassium 875 mg 12/05/23 17:27 12/05/23 17:38 Amoxicillin/Potassium Clav 875 Mg Tablet PO 12/05/23 17:28 875 mg ONCE ONE Administration Azithromycin 500 mg 12/05/23 17:27 12/05/23 17:38 Azithromycin 500 Mg Tablet PO 12/05/23 17:28 500 mg ONCE ONE Administration Medical Decision Making Medical Decision Making MDM Narrative: 68-year-old male presents for evaluation of general weakness. Patient has a dry cough for the last couple of months. He has been seen by his primary doctor he had a chest x-ray on 10/26/2023 that did not show any acute findings. The patient appears quite intoxicated today and is alcohol level is 370. He denies any chest pain, shortness of breath with exertion. His labs are significant for a mild leukocytosis to 11.9. He has a mild anemia with a hemoglobin of 13.7 and hematocrit 38.7. This is a macrocytic anemia likely related to alcohol abuse. Chemistries are significant for a BUN that is slightly elevated to 17 bili normal creatinine of 1.10. Electrolytes within normal limits. Patient's glucose is elevated to 218. The patient does not carry a diagnosis of diabetes. His AST is slightly elevated to 44, otherwise LFTs within normal limits. This is likely related to alcohol abuse. Patient has CT scan of his brain that did not show any acute findings. He had an EKG does not show any ST segment elevation [place]. He is sinus rhythm and relatively unchanged when compared to previous from last month. The patient's chest x-ray does show concern for bibasilar atelectasis versus atypical or aspiration pneumonia. This is a new finding when compared to his x-ray from last month. Given the patient is an alcohol abuser we will treat with Augmentin and azithromycin. Despite the patient's intoxicated state, his and daughter are present and sober, they are comfortable taking the patient home at this time. Return precautions were given Differential Diagnosis Differential Diagnoses: The differential diagnosis associated with the presentation includes Alcohol abuse CVA Intracranial hemorrhage Intracranial mass Alcohol intoxication Aspiration my Weakness Bronchitis COVID-19 Lab Data [facility] Lab Attestation statement: I reviewed the patient's lab results. Please see medical decision making above 12/05/23 15:21 12/05/23 15:21 Labs: Lab Results 12/05/23 12/05/23 12/05/23 Range/Units 15:21 15:26 16:28 WBC 11.9 H (4.8-10.8) X10*3/uL RBC 3.92 L (4.60-5.80) X10*6/uL Hgb 13.7 L (14.0-18.0) g/dl Hct 38.7 L (42.0-52.0) % MCV 98.7 H (80.0-98.0) fL MCH 34.9 H (27.0-33.0) pg MCHC 35.4 (31.0-36.0) g/dl RDW 13.0 (11.0-16.0) % Plt Count 109 L (160-400) X10*3/uL MPV 8.5 L (9.4-12.4) fL Immature Gran % (Auto) 0.4 (0.0-0.4) % Neut % (Auto) 66.2 (45-73) % Lymph % (Auto) 25.7 (20-40) % [place] % (Auto) 5.4 (2-11) % Eos % (Auto) 1.0 (0-4) % Baso % (Auto) 1.3 (0-2) % Lymph # (Auto) 3.1 (1.2-4.9) X10*3/uL [place] # (Auto) 0.6 (0.1-1.2) X10*3/uL Eos # (Auto) 0.1 (0.0-0.4) X10*3/uL Baso # (Auto) 0.2 (0.0-0.2) X10*3/uL Abs Immat Gran (auto) 0.05 H (0.00-0.03) X10*3/uL Absolute Neuts (auto) 7.9 (2.0-8.3) x10*3/uL Absolute Nucleated RBC 0.000 (0.0-0.012) X10*3/uL Nucleated RBC % (auto) 0.0 (0.0-0.2) /100WBC PT 12.0 (11.1-13.3) SEC INR 1.0 (0.9-1.1) APTT 31.1 (26.0-36.8) SEC VBG pH 7.39 (7.32-7.43) VBG pCO2 45 mmHg VBG pO2 52 mmHg VBG HCO3 27 H (22-26) mmol/L VBG O2 Saturation 77.0 % VBG Base Excess 2.4 mmol/L Sodium 145 (135-145) mmol/L Potassium 3.5 (3.3-5.1) mmol/L Chloride 106 (96-108) mmol/L Carbon Dioxide 24 (22-29) mmol/L Anion Gap 19 (12-20) BUN 17 H (9-16) mg/dL Creatinine 1.10 (0.5-1.4) mg/dL Estim Creat Clear Calc 56.3 Estimated GFR > 60 Random Glucose 218 H (60-115) mg/dL Calcium 9.1 D (8.4-10.2) mg/dL Magnesium 1.6 (1.6-2.6) mg/dL Total Bilirubin 0.4 (0.0-1.0) mg/dL Direct Bilirubin 0.2 (0.0-0.5) mg/dL AST 44 H (5-37) U/L ALT 19 (0-40) U/L Alkaline Phosphatase 94 (39-117) U/L Ammonia 22 (13-55) umol/L Total Creatine Kinase 120 (38-174) U/L Troponin I High Sens < 2.7 (<3.5-35.0) ng/L Total Protein 7.3 (6.5-8.0) g/dL Albumin 4.3 (3.5-5.0) g/dL Lipase 92 H (8-78) U/L TSH 1.03 (0.32-4.0) uIU/mL Urine Color Urine Appearance Urine pH (5.0-9.0) Ur Specific [place] (1.005-1.025) Urine Protein (Neg-Trace) mg/dL Urine Glucose (UA) (Negative) mg/dL Urine Ketones (Negative) mg/dL Urine Blood (Negative) Urine Nitrite (Negative) Ur Leukocyte Esterase (Negative) Urine RBC (0-2) /HPF Urine WBC (0-5) /HPF Ur Squamous Epith Cells (0-2) /HPF Urine Bacteria (None Seen) Hyaline Casts (0-2) /LPF Urine Opiates Screen Not Detected (Not Detect) Ur Buprenorphine Scrn Not Detected (Not Detect) ng/mL Ur Oxycodone Screen Not Detected (Not Detect) ng/mL Urine Methadone Screen Not Detected (Not Detect) ng/mL Urine Fentanyl Screen Not Detected (Not Detect) Ur Barbiturates Screen Not Detected (Not Detect) Ur Phencyclidine Scrn Not Detected (Not Detect) Ur Amphetamines Screen Not Detected (Not Detect) U Benzodiazepines Scrn Not Detected (Not Detect) Urine Cocaine Screen Not Detected (Not Detect) U Marijuana (THC) Screen Not Detected (Not Detect) Ethyl Alcohol 370 H* mg/dL 12/05/23 Range/Units 16:30 WBC (4.8-10.8) X10*3/uL RBC (4.60-5.80) X10*6/uL Hgb (14.0-18.0) g/dl Hct (42.0-52.0) % MCV (80.0-98.0) fL MCH (27.0-33.0) pg MCHC (31.0-36.0) g/dl RDW (11.0-16.0) % Plt Count (160-400) X10*3/uL MPV (9.4-12.4) fL Immature Gran % (Auto) (0.0-0.4) % Neut % (Auto) (45-73) % Lymph % (Auto) (20-40) % [place] % (Auto) (2-11) % Eos % (Auto) (0-4) % Baso % (Auto) (0-2) % Lymph # (Auto) (1.2-4.9) X10*3/uL [place] # (Auto) (0.1-1.2) X10*3/uL Eos # (Auto) (0.0-0.4) X10*3/uL Baso # (Auto) (0.0-0.2) X10*3/uL Abs Immat Gran (auto) (0.00-0.03) X10*3/uL Absolute Neuts (auto) (2.0-8.3) x10*3/uL Absolute Nucleated RBC (0.0-0.012) X10*3/uL Nucleated RBC % (auto) (0.0-0.2) /100WBC PT (11.1-13.3) SEC INR (0.9-1.1) APTT (26.0-36.8) SEC VBG pH (7.32-7.43) VBG pCO2 mmHg VBG pO2 mmHg VBG HCO3 (22-26) mmol/L VBG O2 Saturation % VBG Base Excess mmol/L Sodium (135-145) mmol/L Potassium (3.3-5.1) mmol/L Chloride (96-108) mmol/L Carbon Dioxide (22-29) mmol/L Anion Gap (12-20) BUN (9-16) mg/dL Creatinine (0.5-1.4) mg/dL Estim Creat Clear Calc Estimated GFR Random Glucose (60-115) mg/dL Calcium (8.4-10.2) mg/dL Magnesium (1.6-2.6) mg/dL Total Bilirubin (0.0-1.0) mg/dL Direct Bilirubin (0.0-0.5) mg/dL AST (5-37) U/L ALT (0-40) U/L Alkaline Phosphatase (39-117) U/L Ammonia (13-55) umol/L Total Creatine Kinase (38-174) U/L Troponin I High Sens (<3.5-35.0) ng/L Total Protein (6.5-8.0) g/dL Albumin (3.5-5.0) g/dL Lipase (8-78) U/L TSH (0.32-4.0) uIU/mL Urine Color Yellow Urine Appearance Clear Urine pH 6.0 (5.0-9.0) Ur Specific [place] 1.015 (1.005-1.025) Urine Protein Negative (Neg-Trace) mg/dL Urine Glucose (UA) Negative (Negative) mg/dL Urine Ketones Negative (Negative) mg/dL Urine Blood Negative (Negative) Urine Nitrite Negative (Negative) Ur Leukocyte Esterase Small (1+) H (Negative) Urine RBC 0-2 (0-2) /HPF Urine WBC 0-5 (0-5) /HPF Ur Squamous Epith Cells 0-2 (0-2) /HPF Urine Bacteria None Seen (None Seen) Hyaline Casts 0-2 (0-2) /LPF Urine Opiates Screen (Not Detect) Ur Buprenorphine Scrn (Not Detect) ng/mL Ur Oxycodone Screen (Not Detect) ng/mL Urine Methadone Screen (Not Detect) ng/mL Urine Fentanyl Screen (Not Detect) Ur Barbiturates Screen (Not Detect) Ur Phencyclidine Scrn (Not Detect) Ur Amphetamines Screen (Not Detect) U Benzodiazepines Scrn (Not Detect) Urine Cocaine Screen (Not Detect) U Marijuana (THC) Screen (Not Detect) Ethyl Alcohol mg/dL Independent Interpretation I performed an independent interpretation of an: EKG, Plain X-Ray and CT Scan (Agree with Radiology interpretation, no acute intracranial pathology) Interpretation: Sinus tachycardia rate of [address] segment elevation [place] Radiology Impression Discussion of test interpretation with radiology: I have reviewed the radiologist's reading. Radiologist Impression: CT/CT head/brain wo IV con IMPRESSION: 1. No acute intracranial pathology. 2. Chronic white matter small vessel ischemic changes. XR/XR chest 1V IMPRESSION: Streaky bibasilar opacities, likely atelectasis in the setting of low lung volumes, though and element of atypical infection or aspiration could appear similar. No confluent consolidation. Discharge Plan Discharge Clinical Impression: Alcohol abuse, Community acquired pneumonia Patient Disposition: Home, Self-Care Instructions: Abuse of Alcohol (ED), Community Acquired Pneumonia (ED) Additional Instructions: Your chest x-ray showed concern for aspiration pneumonia. Take Augmentin twice daily for 1 week and azithromycin daily starting tomorrow as your 1st doses were given in the ER Your CT scan did not show any concerning abnormalities I recommend that you significantly reduced your alcohol intake Follow-up with your primary doctor, return for new or worsening symptoms Prescriptions: New azithromycin 250 mg tablet 250 mg PO DAILY 4 Days Qty: 4 0RF Rx Instructions: start on day 2 of therapy amoxicillin-pot clavulanate 875-125 mg tablet 1 tab PO Q12H Qty: 13 0RF No Action simvastatin 40 mg tablet 40 mg PO BEDTIME furosemide 20 mg tablet 20 mg PO DAILY allopurinol 300 mg tablet 300 mg PO DAILY metoprolol succinate 50 mg tablet extended release 24 hr 50 mg PO DAILY Interventions: ED Discharge Assessment Last Done: 12/05/23 17:43 Discharge Date/Time: 12/05/23 17:44 Print Language: Italian
--- NOTE | 2023-12-05 14:25 | ECG_ITS ---
Test Reason : weakness Blood Pressure : / mmHG Vent. Rate : 111 BPM Atrial Rate : 111 BPM P-R Int : 176 ms QRS Dur : 088 ms QT Int : 342 ms P-R-T Axes : 031 -38 -16 degrees QTc Int : 465 ms Sinus tachycardia Left axis deviation Inferior infarct , age undetermined Anterior infarct , age undetermined Abnormal ECG When compared with ECG of 17-NOV-2023 09:58, T wave inversion no longer evident in Lateral leads Referred By: She Arrington Electronically Signed By:LAVON GREENE
[2023-12-05 15:29] LABS: MANUAL DIFF FLAG NO
[2023-12-05 15:30] LABS: Basophils Absolute Auto 0.2 X10*3/uL (0.0-0.2); Basophils Percent Auto 1.3 % (0-2); Eosinophils Absolute Auto 0.1 X10*3/uL (0.0-0.4); Hematocrit 38.7 % (42.0-52.0); Hemoglobin 13.7 g/dl (14.0-18.0); Imm Gran Abs Auto 0.05 X10*3/uL (0.00-0.03); Imm Gran Pct Auto 0.4 % (0.0-0.4); Lymphocytes Absolute Auto 3.1 X10*3/uL (1.2-4.9); Lymphocytes Percent Auto 25.7 % (20-40); Mean Corpuscular HGB Conc 35.4 g/dl (31.0-36.0); Mean Corpuscular Hemoglobin 34.9 pg (27.0-33.0); Mean Corpuscular Volume 98.7 fL (80.0-98.0); Mean Platelet Volume 8.5 fL (9.4-12.4); Monocytes Absolute Auto 0.6 X10*3/uL (0.1-1.2); Monocytes Percent Auto 5.4 % (2-11); Neutrophils Absolute Auto 7.9 x10*3/uL (2.0-8.3); Neutrophils Percent Auto 66.2 % (45-73); Platelet Count 109 X10*3/uL (160-400); Red Blood Count 3.92 X10*6/uL (4.60-5.80); White Blood Count 11.9 X10*3/uL (4.8-10.8)
[2023-12-05 15:34] LABS: VBG Base Excess 2.4 mmol/L; VBG HCO3 27 mmol/L (22-26); VBG pCO2 45 mmHg; VBG pH 7.39 (7.32-7.43); VBG pO2 52 mmHg
[2023-12-05 15:38] LABS: Ammonia 22 umol/L (13-55)
[2023-12-05 15:41] LABS: Venous Blood Gas Refer to POC result
[2023-12-05 15:47] LABS: Alanine Aminotransferase 19 U/L (0-40); Albumin Level 4.3 g/dL (3.5-5.0); Alkaline Phosphatase 94 U/L (39-117); Anion Gap 19 (12-20); Aspartate Amino Transferase 44 U/L (5-37); Bilirubin Direct 0.2 mg/dL (0.0-0.5); Bilirubin Total 0.4 mg/dL (0.0-1.0); Blood Urea Nitrogen 17 mg/dL (9-16); Calcium 9.1 mg/dL (8.4-10.2); Carbon Dioxide 24 mmol/L (22-29); Chloride 106 mmol/L (96-108); Creatinine Clr Calc Pharmacy 56.3; Estimated Glomerular Filt Rate > 60; Glucose Random 218 mg/dL (60-115); Lipase 92 U/L (8-78); Magnesium 1.6 mg/dL (1.6-2.6); Potassium 3.5 mmol/L (3.3-5.1); Sodium 145 mmol/L (135-145); Total Protein 7.3 g/dL (6.5-8.0)
[2023-12-05 15:51] LABS: Ethanol 370 mg/dL
[2023-12-05 15:58] LABS: Troponin-I High Sensitivity < 2.7 ng/L (<3.5-35.0)
[2023-12-05 16:01] LABS: Partial Thromboplastin Time 31.1 SEC (26.0-36.8)
[2023-12-05 16:08] LABS: TSH reflex Free T4 1.03 uIU/mL (0.32-4.0)
[2023-12-05 16:56] LABS: Appearance Urine Clear; Color Urine Yellow; Glucose Urine UA Negative (Negative); Leukocyte Esterase Urine Small (1+) (Negative); Nitrite Urine Negative (Negative); Specific Gravity - Urine 1.015 (1.005-1.025); UMIC TRIGGER UACC YES; Urine Blood Negative (Negative); Urine Ketones Negative (Negative); Urine Protein Negative (Neg-Trace)
[2023-12-05 17:24] LABS: Amphetamine Screen Urine Not Detected (Not Detect); Barbiturates, Urine Not Detected (Not Detect); Benzodiazepines Screen Urine Not Detected (Not Detect); Buprenorphine Scr Not Detected (Not Detect); Cannabinoid Screen Urine Not Detected (Not Detect); Cocaine Screen Urine Not Detected (Not Detect); Fentanyl, urine Not Detected (Not Detect); Methadone Screen, Urine Not Detected (Not Detect); Opiate Screen Urine Not Detected (Not Detect); Oxycodone Screen Urine Not Detected (Not Detect); Phencyclidine Screen Urine Not Detected (Not Detect)
[2023-12-05 17:26] LABS: Bacteria Urine None Seen (None Seen); Hyaline Casts Urine 0-2 /LPF (0-2); RBC Urine 0-2 /HPF (0-2); Squamous Epithelial Cell Urine 0-2 /HPF (0-2); UACC Culture Trigger YES; WBC Urine 0-5 /HPF (0-5)
[2023-12-05] MEDS: Amoxicillin/Potassium Clav 875 MG TABLET PO (17:38)
[2023-12-05] MEDS: Azithromycin 500 MG TABLET PO (17:38)
[2023-12-05 17:43] VITALS: BP 139/88; PULSE 98; RESP 18; TEMP 36.4; O2SAT 97
== END 2023-12-05 17:44 | disposition home or self-care (01) ==
PROVIDERS: Physician Assistant; Emergency Provider Emergency Medicine; PCP Family Medicine
DX: F10.10 Alcohol abuse, uncomplicated (principal); Y90.8 Blood alcohol level of 240 mg/100 ml or more; J18.8 Other pneumonia, unspecified organism; D72.829 Elevated white blood cell count, unspecified; R94.5 Abnormal results of liver function studies; D64.9 Anemia, unspecified; R00.0 Tachycardia, unspecified; M10.9 Gout, unspecified; R53.1 Weakness; R41.0 Disorientation, unspecified; N39.498 Other specified urinary incontinence; R05.9 Cough, unspecified; I10 Essential (primary) hypertension; E78.5 Hyperlipidemia, unspecified; K21.9 Gastro-esophageal reflux disease without esophagitis; R29.6 Repeated falls; Z91.81 History of falling; Z79.899 Other long term (current) drug therapy; Z79.02 Long term (current) use of antithrombotics/antiplatelets
CPT/HCPCS: 36415; 70450; 71045; 80048; 80076; 80307; 81001; 82140; 82550; 82803; 83690; 83735; 84443; 84484; 85025; 85610; 85730; 87086; 93005; 99284

== ENCOUNTER → 2023-12-05 14:25 | Outpatient (BNV) | payer MEDICARE, SELFPAY | PROVIDERS: Emergency Provider Emergency Medicine; PCP Family Medicine; Visit Provider Internal Medicine | DX: R94.31 Abnormal electrocardiogram [ECG] [EKG] (principal) | CPT/HCPCS: 93010 ==

== ENCOUNTER 2023-12-28 09:49 | Outpatient (REF) | payer MEDICARE, SELFPAY ==
--- NOTE | ~2023-12-28 | XR_ITS ---
EXAMINATION: XR CHEST CLINICAL INFORMATION: Pneumonia COMPARISON: None available. TECHNIQUE: 2 views of the chest were obtained. FINDINGS: No significant abnormality is noted involving the heart, lungs, mediastinum, bony thorax or soft tissues. Degenerative changes are seen in the lower thoracic and upper lumbar spine. XR/XR chest 2V IMPRESSION: Unremarkable examination.
[2023-12-28 11:20] LABS: Estimated Average Glucose 128 mg/dL; Hemoglobin A1c % 6.1 % (<6.0)
[2023-12-28 11:27] LABS: Glucose Fasting 198 mg/dL (60-99)
== END 2023-12-28 09:50 | disposition home or self-care (01) ==
LOC: HO.LAB 09:49
PROVIDERS: PCP Family Medicine; Visit Provider Family Medicine
DX: J18.9 Pneumonia, unspecified organism (principal); R73.9 Hyperglycemia, unspecified
CPT/HCPCS: 36415; 71046; 82947; 83036

== ENCOUNTER 2024-01-16 14:52 | Emergency (ER) | payer MEDICARE, SELFPAY ==
--- NOTE | ~2024-01-16 | CT_ITS ---
EXAMINATION: CT HEAD WITHOUT CONTRAST CLINICAL INFORMATION: Alcohol. Fall. COMPARISON: 12/05/2023 TECHNIQUE: Multidetector volumetric imaging of the head was performed without intravenous contrast material. This CT examination was performed using dose optimization techniques as appropriate, variously including the following: *Automated exposure control *Adjustment of mA and/or kV according to patient size (this includes techniques or standardized protocols for targeted exams where dose is matched to indication/reason for exam; i.e. extremities or head) *Use of iterative reconstruction technique Dose: 985 mGy-cm FINDINGS: There is no evidence of acute intracranial hemorrhage or territorial infarction. No abnormal mass-effect or midline shift is seen. Norman to white matter differentiation is well preserved. No extra axial fluid collections. There is commensurate enlargement of the ventricles and extraaxial CSF spaces consistent with mild volume loss. A few foci of hypoattenuation in the subcortical and periventricular white matter are most consistent with chronic microangiopathic changes. Calcific atherosclerosis is present within the cavernous segments of the internal carotid arteries. The soft tissues and osseous structures are normal. Minimal pneumatization of the frontal sinuses. Paranasal sinuses are otherwise clear, as are the mastoid air cells. CT/CT head/brain wo IV con IMPRESSION: No acute intracranial pathology.
--- NOTE | 2024-01-16 14:54 | ED.GENADULT ---
HPI - General Adult General Chief complaint: ETOH/Substance Use Stated complaint: ?stroke Time Seen by Provider: 01/16/24 16:22 Source: patient, RN notes reviewed and old records reviewed Mode of arrival: ambulatory Limitations: other (Alcohol intoxication) History of Present Illness ED Provider: Cristofer HPI narrative: 68-year-old male past medical history significant for hypertension, hyperlipidemia, alcohol abuse presents for evaluation after a fall. Patient [place] with his . He reported not feeling well and then he fell to the ground while walking out of the casino. The patient's was with him the entire time, he did not hit his head There was no loss of consciousness The patient's states it seemed like [the patient's] legs gave out and he just collapsed. She confirms he did not lose consciousness through this episode. He denies any pain whatsoever The patient admits to drinking heavily daily He had a similar episode last night where he collapsed to the ground but denies hitting his head This was not witnessed by the He has no complaints or concerns at this time and states that he wants to leave The patient does take magnesium supplementation due to hypomagnesemia related to alcohol abuse Related Data Home Medications ?Medication ?Instructions ?Recorded ?Confirmed allopurinol 300 mg tablet 300 mg PO DAILY 09/17/21 06/18/23 furosemide 20 mg tablet 20 mg PO DAILY 09/17/21 06/18/23 metoprolol succinate 50 mg 50 mg PO DAILY 09/17/21 06/18/23 tablet,extended release 24 hr simvastatin 40 mg tablet 40 mg PO BEDTIME 09/17/21 06/18/23 Previous Rx's ?Medication ?Instructions ?Recorded amoxicillin 875 mg-potassium 1 tab PO Q12H #13 tabs 12/05/23 clavulanate 125 mg tablet azithromycin 250 mg tablet 250 mg PO DAILY 4 days #4 tabs 12/05/23 Allergies Allergy/AdvReac Type Severity Reaction Status Date / Time lisinopril [LISINOPRIL] Allergy Unknown RASH Verified 01/16/24 14:59 prednisone [PREDNISONE] Allergy Unknown INSOMNIA, Verified 01/16/24 14:59 insominia Review of Systems Constitutional: Constitutional: Denies body ache(s), Denies chills, Denies fever(s), Reports frequent falls and Denies headache(s) Eyes: Eyes: Denies blurry vision and Denies loss of vision ENT: Denies headache(s) Cardiovascular: Cardiovascular: Denies chest pain and Denies dyspnea Respiratory: Respiratory: Denies cough and Denies dyspnea Gastrointestinal: Gastrointestinal: Denies abdominal pain, Denies nausea and Denies vomiting Musculoskeletal: Musculoskeletal: Denies back pain Integumentary/Breasts: Skin/Breast: Denies rash Neurologic: Reports frequent falls, Denies headache(s), Denies focal weakness and Denies loss of vision [facility] Past Medical History Medical History On beta jennifer at home Hiatal hernia GERD (gastroesophageal reflux disease) Gout High cholesterol HTN (hypertension) ETOH abuse Surgical History History of right inguinal hernia repair (06/01/23) History of oral surgery History of esophagogastroduodenoscopy (EGD) History of appendectomy H/O hernia repair Family History Family History Mother History of breast cancer Social History Social History Are you a primary student career development specialist to a significant other at home: No Do you presently have visiting nurse or other home services: No Alcohol intake: current Alcohol intake frequency: 3 or more drinks per day Alcohol type: hard liquor Patient Tobacco Use Status: Never used Tobacco Smoked in Last 30 Days: No Use of substances other than those prescribed or required for medical reasons: No Advance Directives: No Advance Directives Information Provided: No Do you have a plan to hurt others: No Plan Physical Exam ED Vital Signs: Vital Signs - 24 hr 01/16/24 14:56 Temperature 97.7 F Pulse Rate 95 Respiratory Rate 18 Blood Pressure 141/84 H Pulse Oximetry 98 Oxygen Delivery Method Room Air BMI result Body Mass Index 24.3 Const General: healthy appearing, comfortable, no acute distress, alert and awake Nutritional Appearance: well nourished Orientation/consciousness: patient oriented x3 HENMT Head: Yes normocephalic and Yes atraumatic Throat: Yes posterior oropharynx normal Eyes Eyelids: Yes eyelids normal Conjunctivae: conjunctivae normal Sclerae: sclerae normal Corneas: corneas normal Pupils: Equal, round and reactive pupils present EOM: EOMs intact bilaterally Neck Neck: Yes full ROM Resp Effort & Inspection: normal respiratory effort, able to speak in complete sentences, no audible wheezes and not labored Auscultation: clear to auscultation bilaterally Cardio Rate: regular rate Rhythm: regular rhythm GI Inspection: No distended Palpation (GI): Soft to palpation, not firm, nontender, no guarding and not rigid Skin General skin exam: elasticity normal Neuro General: patient oriented x3 Cranial nerves: Yes CN's II-XII intact bilaterally, Yes Equal, round and reactive pupils present and Yes Bilaterally intact EOM present Cognition (Neuro): normal cognition Extrem Other: Moving all extremities well without any obvious deformities Course Course Course Narrative: This is a Rapid Medical Exam performed in triage by Francia Grover PA-C. Full HPI, ROS and PE to be performed by primary ED provider. 68 year-old M w/ PMHx ETOH abuse, GERD, HTN, HLD presenting to the ED c/o +ETOH & fall at approx. 1:45pm at the [facility]. also reports fall last night. Admits to drinking 4-5 shots a day. Intoxicated now. denies hx withdrawal sz's. last drink reportedly 4hrs ago PE: no focal deficits, +intoxicated Plan: EKG, labs, UA, tox, Head CT Medications Administered Generic Name Dose Route Start Last Admin Trade Name Maryam PRN Reason Stop Dose Admin Magnesium Sulfate 2 gm in 50 mls @ 25 mls/hr 01/16/24 15:58 01/16/24 16:03 Magnesium Sulfate/H2o IV 01/16/24 17:57 Not Given ONCE ONE Magnesium Sulfate 2 gm in 50 mls @ 25 mls/hr 01/16/24 16:35 01/16/24 16:44 Magnesium Sulfate/H2o IV 01/16/24 18:34 25 mls/hr ONCE ONE Administration Medical Decision Making Medical Decision Making MDM Narrative: 68-year-old male with past medical history as documented above presents for evaluation after a fall yesterday and today. It does not seem like a true syncopal episode. His witnessed fall and the patient slumped to the ground but he was conscious the whole time. A seemed as if his legs gave out. The patient has significant history of alcohol abuse. Plan for syncope workup with EKG, labs, CT scan of the brain. The patient is very adamant that he has no interest in detox. The patient has no pain, he is well-appearing with stable vital signs. Given the lack of chest pain, ACS is less likely, he does have hypertension but no chest pain, abdominal pain or back pain to suggest aortic dissection or AAA. He has no cough, shortness of breath or chest pain to suggest PE, no leg swelling or history of blood clots. It is likely the patient's weakness is related to his alcohol abuse and intoxication Differential Diagnosis Differential Diagnoses: The differential diagnosis associated with the presentation includes Acute alcohol intoxication Alcohol abuse Hypomagnesemia Syncope Failure to thrive Intracranial hemorrhage CVA less likely Lab Data MDM Lab Attestation statement: I reviewed the patient's lab results. No leukocytosis. The patient has a stable, macrocytic anemia consistent with his baseline. This is likely related to his alcohol abuse and liver cirrhosis. He has a thrombocytopenia of 81 which again is likely related to a alcohol abuse. Patient's labs are significant for a random glucose of 138, magnesium of 1.4, AST and ALT are elevated 95 and 44 respectively. The patient reports he is being worked up for diabetes but is no evidence of DKA. His magnesium of 1.4 is related to his alcohol abuse and will be repleted IV. The elevated LFTs are likely related to liver cirrhosis and alcohol abuse. The patient's troponin is negative. Remainder of chemistries are unremarkable 01/16/24 15:27 01/16/24 15:27 Labs: Lab Results 01/16/24 01/16/24 Range/Units 15:27 16:42 WBC 8.1 (4.8-10.8) X10*3/uL RBC 3.93 L (4.60-5.80) X10*6/uL Hgb 14.0 (14.0-18.0) g/dl Hct 39.6 L (42.0-52.0) % MCV 100.8 H (80.0-98.0) fL MCH 35.6 H (27.0-33.0) pg MCHC 35.4 (31.0-36.0) g/dl RDW 12.5 (11.0-16.0) % Plt Count 81 L D (160-400) X10*3/uL MPV 9.1 L (9.4-12.4) fL Immature Gran % (Auto) 0.4 (0.0-0.4) % Neut % (Auto) 59.7 (45-73) % Lymph % (Auto) 30.5 (20-40) % Ramsey % (Auto) 6.4 (2-11) % Eos % (Auto) 1.0 (0-4) % Baso % (Auto) 2.0 (0-2) % Lymph # (Auto) 2.5 (1.2-4.9) X10*3/uL Ramsey # (Auto) 0.5 (0.1-1.2) X10*3/uL Eos # (Auto) 0.1 (0.0-0.4) X10*3/uL Baso # (Auto) 0.2 (0.0-0.2) X10*3/uL Abs Immat Gran (auto) 0.03 (0.00-0.03) X10*3/uL Absolute Neuts (auto) 4.9 (2.0-8.3) x10*3/uL Absolute Nucleated RBC 0.000 (0.0-0.012) X10*3/uL Nucleated RBC % (auto) 0.0 (0.0-0.2) /100WBC PT 12.6 (11.1-13.3) SEC INR 1.0 (0.9-1.1) Sodium 143 (135-145) mmol/L Potassium 3.8 (3.3-5.1) mmol/L Chloride 102 (96-108) mmol/L Carbon Dioxide 27 (22-29) mmol/L Anion Gap 18 (12-20) BUN 12 (9-16) mg/dL Creatinine 1.19 (0.5-1.4) mg/dL Estim Creat Clear Calc 54.0 Estimated GFR > 60 Random Glucose 138 H (60-115) mg/dL Calcium 9.5 (8.4-10.2) mg/dL Magnesium 1.4 L* (1.6-2.6) mg/dL Total Bilirubin 0.8 (0.0-1.0) mg/dL Direct Bilirubin 0.4 (0.0-0.5) mg/dL AST 95 H (5-37) U/L ALT 44 H (0-40) U/L Alkaline Phosphatase 107 (39-117) U/L Troponin I High Sens < 2.7 (<3.5-35.0) ng/L Total Protein 7.5 (6.5-8.0) g/dL Albumin 4.5 (3.5-5.0) g/dL Lipase 79 H (8-78) U/L Ethyl Alcohol 382 H* mg/dL Independent Interpretation I performed an independent interpretation of an: EKG Interpretation: Sinus rhythm with rate of [address] segment elevations or depressions. Discharge Plan Discharge Clinical Impression: Acute alcohol intoxication, Hypomagnesemia, Fall Patient Disposition: Still a Patient Instructions: Hypomagnesemia (ED), Abuse of Alcohol (ED) Additional Instructions: Your workup in the ER today was reassuring. Your CT scan did not show any evidence of brain or head injury. Your EKG did not show any changes concerning for cardiac issues Your magnesium was low and was repleted today. Your liver enzymes were elevated which is likely related to or alcohol use I do recommend that you consider detox Prescriptions: No Action azithromycin 250 mg tablet 250 mg PO DAILY 4 Days Qty: 4 0RF Rx Instructions: start on day 2 of therapy amoxicillin-pot clavulanate 875-125 mg tablet 1 tab PO Q12H Qty: 13 0RF simvastatin 40 mg tablet 40 mg PO BEDTIME furosemide 20 mg tablet 20 mg PO DAILY allopurinol 300 mg tablet 300 mg PO DAILY metoprolol succinate 50 mg tablet extended release 24 hr 50 mg PO DAILY Print Language: Frisian
[2024-01-16 14:56] VITALS: BP 141/84; PULSE 95; RESP 18; TEMP 36.5; O2SAT 98; BMI 24.3
--- NOTE | 2024-01-16 14:58 | ECG_ITS ---
Test Reason : FALL Blood Pressure : / mmHG Vent. Rate : 091 BPM Atrial Rate : 091 BPM P-R Int : 168 ms QRS Dur : 086 ms QT Int : 364 ms P-R-T Axes : 033 -37 015 degrees QTc Int : 447 ms Normal sinus rhythm Left axis deviation Inferior infarct (cited on or before 05-DEC-2023) Anterior infarct (cited on or before 05-DEC-2023) Abnormal ECG When compared with ECG of 05-DEC-2023 14:42, No significant change was found Referred By: Francia Grover Electronically Signed By:LAVON GREENE
[2024-01-16 15:35] LABS: MANUAL DIFF FLAG NO
[2024-01-16 15:37] LABS: Basophils Absolute Auto 0.2 X10*3/uL (0.0-0.2); Eosinophils Absolute Auto 0.1 X10*3/uL (0.0-0.4); Hematocrit 39.6 % (42.0-52.0); Imm Gran Abs Auto 0.03 X10*3/uL (0.00-0.03); Imm Gran Pct Auto 0.4 % (0.0-0.4); Lymphocytes Absolute Auto 2.5 X10*3/uL (1.2-4.9); Lymphocytes Percent Auto 30.5 % (20-40); Mean Corpuscular HGB Conc 35.4 g/dl (31.0-36.0); Mean Corpuscular Hemoglobin 35.6 pg (27.0-33.0); Mean Corpuscular Volume 100.8 fL (80.0-98.0); Mean Platelet Volume 9.1 fL (9.4-12.4); Monocytes Absolute Auto 0.5 X10*3/uL (0.1-1.2); Monocytes Percent Auto 6.4 % (2-11); Neutrophils Absolute Auto 4.9 x10*3/uL (2.0-8.3); Neutrophils Percent Auto 59.7 % (45-73); Platelet Count 81 X10*3/uL (160-400); Red Blood Count 3.93 X10*6/uL (4.60-5.80); Red Cell Distribution Width 12.5 % (11.0-16.0); White Blood Count 8.1 X10*3/uL (4.8-10.8)
[2024-01-16 15:42] LABS: Prothrombin Time 12.6 SEC (11.1-13.3)
[2024-01-16 15:58] LABS: Alanine Aminotransferase 44 U/L (0-40); Albumin Level 4.5 g/dL (3.5-5.0); Alkaline Phosphatase 107 U/L (39-117); Anion Gap 18 (12-20); Aspartate Amino Transferase 95 U/L (5-37); Bilirubin Direct 0.4 mg/dL (0.0-0.5); Bilirubin Total 0.8 mg/dL (0.0-1.0); Blood Urea Nitrogen 12 mg/dL (9-16); Calcium 9.5 mg/dL (8.4-10.2); Carbon Dioxide 27 mmol/L (22-29); Chloride 102 mmol/L (96-108); Estimated Glomerular Filt Rate > 60; Ethanol 382 mg/dL; Glucose Random 138 mg/dL (60-115); Lipase 79 U/L (8-78); Magnesium 1.4 mg/dL (1.6-2.6); Potassium 3.8 mmol/L (3.3-5.1); Sodium 143 mmol/L (135-145); Total Protein 7.5 g/dL (6.5-8.0)
--- NOTE | 2024-01-16 16:03 | PC.NURSE ---
Patient refused IV and IV magnesium. Provider made aware. Patient continues to yell that he's going home from the stretcher.
--- NOTE | 2024-01-16 16:09 | PC.NURSE ---
Patient also refusing to supply urine sample.
[2024-01-16] MEDS: Magnesium Sulfate/H2O 2 GM/50 ML PIGGYBACK IV (16:44)
[2024-01-16 17:09] LABS: Troponin-I High Sensitivity < 2.7 ng/L (<3.5-35.0)
[2024-01-16 18:35] VITALS: BP 146/94; PULSE 97; RESP 16; TEMP 36.8; O2SAT 97
== END 2024-01-16 18:37 | disposition still patient (30) ==
PROVIDERS: Physician Assistant; Emergency Provider Emergency Medicine; PCP Family Medicine
DX: F10.120 Alcohol abuse with intoxication, uncomplicated (principal); Y90.8 Blood alcohol level of 240 mg/100 ml or more; E83.42 Hypomagnesemia; R29.6 Repeated falls; Z91.81 History of falling; R53.1 Weakness; D50.9 Iron deficiency anemia, unspecified; D69.6 Thrombocytopenia, unspecified; I10 Essential (primary) hypertension; E78.00 Pure hypercholesterolemia, unspecified; K21.9 Gastro-esophageal reflux disease without esophagitis; Z79.02 Long term (current) use of antithrombotics/antiplatelets; Z79.899 Other long term (current) drug therapy
CPT/HCPCS: 36415; 70450; 80048; 80076; 80307; 83690; 83735; 84484; 85025; 85610; 93005; 96374; 99284; J3475

== ENCOUNTER → 2024-01-16 14:58 | Outpatient (BNV) | payer MEDICARE, SELFPAY | PROVIDERS: Emergency Provider Emergency Medicine; PCP Family Medicine; Visit Provider Internal Medicine | DX: R94.31 Abnormal electrocardiogram [ECG] [EKG] (principal) | CPT/HCPCS: 93010 ==

== ENCOUNTER 2024-04-27 10:50 | Outpatient (REF) | payer MEDICARE, SELFPAY ==
[2024-04-27 11:04] LABS: MANUAL DIFF FLAG NO
[2024-04-27 11:48] LABS: Basophils Absolute Auto 0.1 X10*3/uL (0.0-0.2); Basophils Percent Auto 1.2 % (0-2); Eosinophils Absolute Auto 0.4 X10*3/uL (0.0-0.4); Eosinophils Percent Auto 4.1 % (0-4); Hematocrit 32.3 % (42.0-52.0); Hemoglobin 10.6 g/dl (14.0-18.0); Imm Gran Abs Auto 0.03 X10*3/uL (0.00-0.03); Imm Gran Pct Auto 0.4 % (0.0-0.4); Lymphocytes Absolute Auto 1.5 X10*3/uL (1.2-4.9); Lymphocytes Percent Auto 17.2 % (20-40); Mean Corpuscular HGB Conc 32.8 g/dl (31.0-36.0); Mean Corpuscular Hemoglobin 34.3 pg (27.0-33.0); Mean Corpuscular Volume 104.5 fL (80.0-98.0); Monocytes Absolute Auto 0.5 X10*3/uL (0.1-1.2); Monocytes Percent Auto 6.1 % (2-11); Neutrophils Absolute Auto 6.1 x10*3/uL (2.0-8.3); Platelet Count 162 X10*3/uL (160-400); Red Blood Count 3.09 X10*6/uL (4.60-5.80); Red Cell Distribution Width 13.2 % (11.0-16.0); White Blood Count 8.5 X10*3/uL (4.8-10.8)
[2024-04-27 12:07] LABS: Estimated Average Glucose 103 mg/dL; Hemoglobin A1C 97.1713 umol/L; Hemoglobin A1c % 5.2 % (<6.0); Total Hemoglobin (HGBA1C) 2902.2307 umol/L
[2024-04-27 12:27] LABS: Alanine Aminotransferase 13 U/L (0-40); Albumin Level 4.1 g/dL (3.5-5.0); Alkaline Phosphatase 79 U/L (39-117); Anion Gap 11 (12-20); Aspartate Amino Transferase 21 U/L (5-37); Bilirubin Total 0.7 mg/dL (0.0-1.0); Blood Urea Nitrogen 15 mg/dL (9-16); Calcium 9.9 mg/dL (8.4-10.2); Carbon Dioxide 22 mmol/L (22-29); Chloride 112 mmol/L (96-108); Estimated Glomerular Filt Rate > 60; Glucose Fasting 136 mg/dL (60-99); Magnesium 1.8 mg/dL (1.6-2.6); Potassium 4.6 mmol/L (3.3-5.1); Sodium 140 mmol/L (135-145); Total Protein 6.8 g/dL (6.5-8.0)
[2024-05-06 03:19] LABS: FIB-ALT 9 U/L (9-46); FIB-Alpha-2-Macroglobulin 199 mg/dL (106-279); FIB-Apolipoprotein A1 187 mg/dL (94-176); FIB-GGT 181 U/L (3-70); FIB-Haptoglobin 125 mg/dL (43-212); FIB-Total Bilirubin 0.6 mg/dL (0.2-1.2); Liver Fibrosis Score 0.45; Liver Fibrosis Stage F1-F2; Nec Inflam Act Grade A0; Nec Inflam Act Score 0.03; Reference ID 5201941
== END 2024-04-27 10:51 | disposition home or self-care (01) ==
LOC: HO.LAB 10:50
PROVIDERS: PCP Family Medicine; Visit Provider Family Medicine
DX: D64.9 Anemia, unspecified (principal); E11.9 Type 2 diabetes mellitus without complications; I10 Essential (primary) hypertension
CPT/HCPCS: 36415; 80053; 81596; 83036; 83735; 85025

== ENCOUNTER 2024-08-17 10:58 | Outpatient (REF) | payer MEDICARE, SELFPAY ==
[2024-08-17 11:14] LABS: MANUAL DIFF FLAG NO
[2024-08-17 11:29] LABS: Basophils Absolute Auto 0.1 X10*3/uL (0.0-0.2); Basophils Percent Auto 1.1 % (0-2); Eosinophils Absolute Auto 0.4 X10*3/uL (0.0-0.4); Eosinophils Percent Auto 3.5 % (0-4); Hematocrit 34.1 % (42.0-52.0); Hemoglobin 11.2 g/dl (14.0-18.0); Imm Gran Abs Auto 0.06 X10*3/uL (0.00-0.03); Imm Gran Pct Auto 0.6 % (0.0-0.4); Lymphocytes Absolute Auto 1.6 X10*3/uL (1.2-4.9); Mean Corpuscular HGB Conc 32.8 g/dl (31.0-36.0); Mean Corpuscular Hemoglobin 30.4 pg (27.0-33.0); Mean Corpuscular Volume 92.7 fL (80.0-98.0); Mean Platelet Volume 8.6 fL (9.4-12.4); Monocytes Absolute Auto 0.6 X10*3/uL (0.1-1.2); Monocytes Percent Auto 5.5 % (2-11); Neutrophils Absolute Auto 7.7 x10*3/uL (2.0-8.3); Neutrophils Percent Auto 74.3 % (45-73); Platelet Count 209 X10*3/uL (160-400); Red Blood Count 3.68 X10*6/uL (4.60-5.80); Red Cell Distribution Width 14.7 % (11.0-16.0); White Blood Count 10.4 X10*3/uL (4.8-10.8)
[2024-08-17 11:35] LABS: Estimated Average Glucose 134 mg/dL; Hemoglobin A1C 135.5203 umol/L; Hemoglobin A1c % 6.3 % (<6.0); Total Hemoglobin (HGBA1C) 2959.3378 umol/L
[2024-08-17 11:56] LABS: Glucose Fasting 141 mg/dL (60-99); Iron 67 mcg/dL (45-160); Percent Iron Saturation 27 % (15-50); Total Iron Binding Capacity 244 mcg/dL (228-428); Unsaturated Iron Binding 177 ug/dL
[2024-08-17 13:20] LABS: Creatinine Urine 313.65 mg/dL; Microalbum/Creatinine Ratio Ur 4.4 ug/mg cr (<30)
--- OUTSIDE RECORDS SUMMARY | 2024-08-17 13:49 | XMS_ITS | Clinical Summary ---
Author Organization [facility] Address [address] [place] [address] Care Team Providers Care Energy Administrator Name Role Phone Brian Macias Primary Care Provider [phone] Allergies No known active allergies Medications allopurinoL (ZYLOPRIM) 300 mg tablet Take 300 mg by mouth once a day. Active metoprolol succinate XL (TOPROL XL) 50 mg tablet Take 50 mg by mouth once a day. Active furosemide (LASIX) 20 mg tablet Take 20 mg by mouth 2 times a day. Active simvastatin (ZOCOR) 40 mg tablet Take 40 mg by mouth nightly. Active omeprazole (PriLOSEC) 20 mg capsule Take 20 mg by mouth once a day. Active potassium chloride ER (KLOR-CON) 20 mEq tablet Take 20 mEq by mouth once a day. Active acetaminophen (TYLENOL) 325 mg tablet Take 2 tablets (650 mg total) by mouth every 6 hours as needed for pain or fever. 4 Active carboxymethylcell ulose (REFRESH PLUS) 0.5% ophthalmic solution Instill 1 drop into both eyes 3 times a day as needed for dry eyes. 4 Active docusate sodium (COLACE) 100 mg capsule Take 1 capsule (100 mg total) by mouth 2 times a day. 4 Active heparin 5,000 unit/mL subcutaneous injection Inject 1 mL (5,000 Units total) under the skin every 8 hours. 4 Active magnesium hydroxide (MILK OF MAGNESIA) 400 mg/5 mL suspension Take 15 mL by mouth every 6 hours as needed for constipation . 4 Active melatonin 3 mg tablet Take 2 tablets (6 mg total) by mouth nightly as needed for sleep. 4 Active naltrexone (REVIA) 50 mg tablet Take 1 tablet (50 mg total) by mouth once a day. 4 Active polyethylene glycol 3350 (MIRALAX) 17 gram packet Take 1 packet (17 g total) by mouth once a day. Mix powder in 4 to 8 oz of water, juice, coffee, or tea prior to administrati on. 4 Active senna (SENOKOT) 8.6 mg tablet Take 2 tablets (17.2 mg total) by mouth nightly. 4 Active Active Problems Problem Noted Date Diagnosed Date Alcoholic cirrhosis (CMS/HCC) 02/24/2024 Elevated serum creatinine 02/23/2024 Thrombocythemia 02/21/2024 SDH (subdural hematoma) 02/19/2024 Resolved Problems Problem Noted Date Diagnosed Date Resolved Date Alcohol withdrawal 02/21/2024 Social History Tobacco Use Types Packs/Day Years Used Date Smoking Tobacco: Never Passive Smoke Exposure: Never Smokeless Tobacco: Never Tobacco Cessation:Counseling Given: No Alcohol Use Standard Drinks/Week Comments Yes 5 (1 standard drink = 0.6 oz pur e alcohol) daily [facility] Utilities Answer Date Recorded In the past 12 months has e [employer], [employer], oil, or water [employer] threatened to shut off services in your home? No 02/21/2024 Hunger Vital Sign Answer Date Recorded Within the past 12 months, y ou worried that your food would run out before you got the money to buy more. Never true 02/21/20 24 Within the past 12 months, t he food you bought just didn't last and you didn't have money to get more. Never true 02/21/2024 Transportation Answer Date Recorded In the past 12 months, has l ack of reliable transportation kept you from medical appointments, meetings, work or from getting things needed for daily living? No 02/21/2024 Housing Answer Date Recorded Housing Risk Low 2 02/21/2024 Housing Risk Medium Not on file 02/21/2024 Housing Risk High Not on file 02/21/2024 What is your living situation today? LSSTEADY 02/21/2024 Sex and Gender Information Value Date Recorded Sex Assigned at Male 02/19/2024 10:38 PM EDT Legal Sex Male 9:20 PM EDT Gender Identity Male 03/17/2024 11:53 AM EDT Sexual Orientation Straight 03/17/2024 11 :53 AM EDT Last Filed Vital Signs Vital Sign Reading Time Taken Comments Blood Pressure 125/73 03/01/2024 3:34 PM EDT Pulse 83 03/01/2024 3:34 PM EDT Temperature 36.4 ??C (97.6 ??F) 03/01/2024 3:34 PM ED T Respiratory Rate 18 03/01/2024 3:34 PM EDT Oxygen Saturation 97% 03/01/2024 3:34 PM EDT Inhaled Oxygen Concentration - - Weight 68 kg (150 lb) 02/18/2024 9:25 PM EDT Height 170.2 cm (5' 7 ) 02/18/2024 9:25 PM EDT Body Mass Index 23.49 02/18/2024 9:25 PM EDT Plan of Treatment Health Maintenance Due Date Last Done Comments Cologuard 1955 Colon Cancer Screening 1955 Colonoscopy 1955 FOBT / Fit Test 1955 Sigmoidoscopy 1953 Pneumococcal Vaccine: 50+ Ye ars (1 of 2 - PCV) 1972 DTaP,Tdap,and Td Vaccines (1 - Tdap) 1975 Zoster Vaccines (1 of 2) 2003 Hepatitis B Vaccines (1 of 3 - Risk 3-dose series) 2013 RSV Vaccine (60+ years old a nd patients) (1 - Risk 60-74 years 1-dose series) 2013 COVID-19 Vaccine (4 - 2023-2 5 season) 2024 05/04/2021, 09/22/2020, 08/31/2020 Influenza Vaccine (#1) 2024 Alcohol/Substance Use Screening 06/22/2024 Depression Screening and Follow-Up 06/22/2024 Health Care Proxy Review 06/22/2024 Social Drivers of Health Farzana ual Screening 06/22/2024 02/21/2024 Basic Metabolic Panel 03/01/2025 03/01/2024 , 02/29/2024, 02/28/2024, Additional history exists Hepatitis C Screening Completed 02/19/2024 Procedures * Due to [place] [employer] law, this organization might not be sharing negative HIV tests. Procedure Name Priority Date/Time Associated Diagnosis Comments BASIC METABOLIC PANEL Routine 03/01/2024 6:35 AM EDT HEPATITIS PANEL, ACUTE Timed 02/19/2024 5:30 PM EDT from Last 3 Months or Most Recently Relevant to Health Maintenance Results * Due to [place] [employer] law, this organization might not be sharing negative HIV tests. * (ABNORMAL) Basic Metabolic Panel (03/01/2024 6:35 AM EDT) NA 139 135 - 145 mmol/L 03/01/2024 8:51 AM EDT [facility] K 3.1(L) 3.5 - 5.3 mmol/L 03/01/2024 8:51 AM EDT [facility] Cl 101 98 - 107 mmol/L 03/01/2024 8:51 AM EDT [facility] CO2 22(L) 24 - 32 mmol/L 03/01/2024 8:51 AM EDT [facility] BUN 17 7 - 23 mg/dL 03/01/2024 8:51 AM EDT [facility] Creatinine 1.65(H) 0.60 - 1.30 mg/dL 03/01/2024 8:51 AM EDT [facility] Glucose 92 65 - 99 mg/dL 03/01/2024 8:51 AM EDT [facility] Calcium 8.6 8.6 - 10.5 mg/dL 03/01/2024 8:51 AM EDT [facility] Anion Gap 16(H) 5 - 15 03/01/2024 8:51 AM EDT [facility] eGFR 44(L) >=60 mL/min/1 .73m2 03/01/2024 8:51 AM EDT [facility] Comment:The estimated glomer ular filtration rate (eGFR) is calculated using a new formula developed by the NKF-ASN task force to eliminate race-based correction factors. The new formula uses serum/plasma creatinine, age, and gender to determine eGFR. A value below 60mls/min might indicate kidney disease and will be flagged. For additional information, see Samaria et al, Am J Kidney Dis. 2021;79(2):268- 288, A Unifying Approach for GFR estimation: Recommendations of the NKF-ASN Task Force on Reassessing the Inclusion of Race in Diagnosing Kidney Disease . Blood Structure of peripheral vein / Unknown Venipuncture / Unknown 03/01/2024 6:35 AM EDT 03/01/2024 8:00 AM EDT us [place] S. Gaston ONLINE COMMUNICATIONS SPECIALIST LAB BLOOD ORDERABLES Final Re sult [facility] [address] [place] [id number], * Hepatitis Panel, Acute (02/19/2024 5:30 PM EDT) Hepatitis A IgM NON-REACT JOHNNY NON-REACT JOHNNY 02/20/2024 10:11 AM EDT [facility] Hepatitis B Surface Antigen NON-REACT JOHNNY NON-REACT JOHNNY 02/20/2024 10:11 AM EDT [facility] Hepatitis B Core Antibody NON-REACT JOHNNY NON-REACT JOHNNY 02/20/2024 10:11 AM EDT [facility] Hepatitis C Antibody NON-REACT JOHNNY NON-REACT JOHNNY 02/20/2024 10:11 AM EDT [facility] Comment: HCV antibody was non-reactive. There is no laboratory evidence of HCV infection. In most cases, no further action is required. However, if recent HCV exposure is suspected, a test for HCV RNA (test code 51977) is suggested. For additional information please refer to http://SeeSaw.com.Tianji/faq/[email or web address] (This link is being provided for informational/ educational purposes only.) For additional information, please refer to http://SeeSaw.com.[email or web address]/faq/GJF561 (This link is being provided for informational/ educational purposes only.) Blood Structure of peripheral vein / Unknown Venipuncture / Unknown 02/19/2024 5:30 PM EDT 02/19/2024 5:42 PM EDT Narrative [facility] - 02/20/2024 10:11 AM EDT [facility] Received Date: Josh Acharya DO LAB BLOOD ORDERABLES Final R esult [facility] [address] [facility] [address], [place] [address], [facility] [address] [facility] [address], [place] [address], from Last 3 Months or Most Recently Relevant to Health Maintenance Insurance [employer] M[employer] REPLACE PPO Advance Directives Documents on File Type Date Recorded Patient [employer] Expl anation Health Care Proxy 02/23/2024 3:29 PM 2023 * Full Code (Latest Code Status on File) Date Activated Date Inactivated Comments 02/19/2024 10:58 AM 03/01/2024 6:30 PM Healthcare Agents on File Name Relationship Healthcare Agent [facility] p Communication Lolis Tirado Spouse Health Care Agent Raisa Flowers Daughter Alternate Health Care Agent Care Teams Energy Administrator Relationship Specialty Start Date End Date Brian Macias [address] [place] [address] DR BEARD, YOAV [id number] PCP - General Internal Medicine 02/25/24
--- OUTSIDE RECORDS SUMMARY | 2024-08-17 13:49 | XMS_ITS | Referral Summary ---
Author Organization [facility] Address [address] [place] [address] Care Team Providers Care Hand Picker Name Role Phone Brian Macias Primary Care Provider [phone] Allergies No known active allergies Medications allopurinoL [...] = 0.6 oz pur e alcohol) daily [facility] Utilities Answer Date Recorded In the past 12 months has e [employer], [email or web address], oil, or water [employer] threatened to shut off services in your [...] 02/18/2024 9:25 PM EDT Plan of Treatment Not on file Procedures * Due to [place] [employer] law, this organization might not be sharing negative HIV tests. Procedure Name Priority Date/Time Associated Diagnosis Comments BASIC METABOLIC PANEL Routine 03/01/2024 6:35 AM EDT HEPATITIS PANEL, ACUTE Timed 02/19/2024 5:30 PM EDT from Last 3 Months or Most Recently Relevant to Health Maintenance Results * Due to [place] [employer] law, this organization might not be sharing negative HIV tests. * (ABNORMAL) Basic Metabolic Panel (03/01/2024 6:35 AM EDT) NA 139 135 - 145 mmol/L 03/01/2024 8:51 AM EDT [facility] K 3.1(L) 3.5 - 5.3 mmol/L 03/01/2024 8:51 AM EDT [facility] Cl 101 98 - 107 mmol/L 03/01/2024 8:51 AM EDT [facility] CO2 22(L) 24 - 32 mmol/L 03/01/2024 8:51 AM EDT [facility] BUN 17 7 - 23 mg/dL 03/01/2024 8:51 AM EDT [facility] Creatinine 1.65(H) 0.60 - 1.30 mg/dL 03/01/2024 8:51 AM EDT [facility] Glucose 92 65 - 99 mg/dL 03/01/2024 8:51 AM EDT [facility] Calcium 8.6 8.6 - 10.5 mg/dL 03/01/2024 8:51 AM EDT [facility] Anion Gap 16(H) 5 - 15 03/01/2024 8:51 AM EDT [facility] eGFR 44(L) >=60 mL/min/1 .73m2 03/01/2024 8:51 AM EDT [facility] Comment:The estimated glomer ular filtration rate (eGFR) is calculated using a new formula developed by the NKF-ASN task force to eliminate race-based correction factors. The new formula uses serum/plasma creatinine, age, and gender to determine eGFR. A value below 60mls/min might indicate kidney disease and will be flagged. For additional information, see Mera et al, Am J Kidney Dis. 2021;79(2):268- 288, A Unifying Approach for GFR estimation: Recommendations of the NKF-ASN Task Force on Reassessing the Inclusion of Race in Diagnosing Kidney Disease . Blood Structure of peripheral vein / Unknown Venipuncture / Unknown 03/01/2024 6:35 AM EDT 03/01/2024 8:00 AM EDT us Arabia S. Gaston MANAGER DEMAND LAB BLOOD ORDERABLES Final Re sult [facility] [address] [place] [address], [place] * Hepatitis Panel, Acute (02/19/2024 5:30 PM EDT) Hepatitis A IgM NON-REACT JOHNNY NON-REACT JOHNNY 02/20/2024 10:11 AM EDT [facility] Hepatitis B Surface Antigen NON-REACT JOHNNY NON-REACT JOHNNY 02/20/2024 10:11 AM EDT [facility] Hepatitis B Core Antibody NON-REACT JOHNNY NON-REACT JOHNNY 02/20/2024 10:11 AM EDT [facility] Hepatitis C Antibody NON-REACT JOHNNY NON-REACT JOHNNY 02/20/2024 10:11 AM EDT [facility] Comment: HCV antibody was non-reactive. There is no laboratory evidence of HCV infection. In most cases, no further action is required. However, if recent HCV exposure is suspected, a test for HCV RNA (test code 62974) is suggested. For additional information please refer to http://FiREapps.Gamzee/faq/MAE86p4 (This link is being provided for informational/ educational purposes only.) For additional information, please refer to http://FiREapps.Gamzee/faq/GGD950 (This link is being provided for informational/ educational purposes only.) Blood Structure of peripheral vein / Unknown Venipuncture / Unknown 02/19/2024 5:30 PM EDT 02/19/2024 5:42 PM EDT Narrative [facility] - 02/20/2024 10:11 AM EDT [facility] Received Date: us Josh Acharya DO LAB BLOOD ORDERABLES Final R esult [facility] [address] [facility] [address], [place] [address], [place] [phone] [facility] [address] [facility] [address] [facility], [place] [address], [place] [phone] from Last 3 Months or Most Recently Relevant to Health Maintenance Insurance BCBS MCR REPLACE PPO Advance Directives Documents on File Type Date Recorded Patient First Assistant Manager Expl anation Health Care Proxy 02/23/2024 3:29 PM 2023 * Full Code (Latest Code Status on File) Date Activated Date Inactivated Comments 02/19/2024 10:58 AM 03/01/2024 6:30 PM Healthcare Agents on File Name Relationship Healthcare Agent Relationshi p Communication Lolis Tirado Spouse Health Care Agent [phone] (Home) Raisa Flowers Daughter Alternate Health Care Agent [email or web address] Care Teams Hand Picker Relationship Specialty Start Date End Date Brian Macias [address] [place] [address] [place] [address] PCP - General Internal Medicine 02/25/24
--- OUTSIDE RECORDS SUMMARY | 2024-08-17 13:49 | XMS_ITS | Clinical Summary ---
Author Organization [facility] [place] [address] Care Team Providers Care Film Vault Supervisor Name Role Phone Unavailable Primary Care Provider Unavailabl e Social History Tobacco Use Types Packs/Day Years Used Date Smoking Tobacco: Never Assessed Sex and Gender Information Value Date Recorded Sex Assigned at Not on file Legal Sex Male 5:08 PM EDT Gender Identity Not on file Sexual Orientation Not on file Plan of Treatment Health Maintenance Due Date Last Done Comments DTaP,Tdap,and Td Vaccines (1 - Tdap) 1972 Pneumococcal Vaccine: 50+ Ye ars (1 of 1 - PCV) 2003 Zoster Vaccines (1 of 2) 2003 COVID-19 Vaccine ( - 2023-2 5 season) 2024 Influenza Vaccine (#1) 2024 Abdominal Aortic Aneurysm (A AA) Screen 04/15/2024 Cholesterol Screening (Lipid Panel) 04/15/2024 Colorectal Cancer Screening: Colonoscopy 04/15/2024 Depression Screening 04/15/2024 Falls Risk Assessment 04/15/2024 Hepatitis C Screening 04/15/2024 Social Influencers of Health Screening 04/15/2024 RSV Immunization Patients 60 + Years Old (1 - 1-dose 75+ series) 2028 HIB Vaccines Aged Out No longer eligi ble based on patient's age to complete this topic HPV Vaccines Aged Out No longer eligi ble based on patient's age to complete this topic Hepatitis A Vaccines Aged Out No long er eligible based on patient's age to complete this topic Hepatitis B Vaccines Aged Out No long er eligible based on patient's age to complete this topic IPV Vaccines Aged Out No longer eligi ble based on patient's age to complete this topic MMR Vaccines Aged Out No longer eligi ble based on patient's age to complete this topic Meningococcal ACWY Vaccine Aged Out N o longer eligible based on patient's age to complete this topic Meningococcal B Vacine Aged Out No lo nger eligible based on patient's age to complete this topic RSV Immunization Patients Un leslye 20 months Aged Out No longer eligible b ased on patient's age to complete this topic Varicella Vaccines Aged Out No longer eligible based on patient's age to complete this topic Advance Directives Documents on File Type Date Recorded Patient Precipitator Expl anation Health Care Decision (hx) 04/15/2024 AD HOLLEY DIRECTIVE Health Care Decision (hx) 03/24/2024 HE AL[facility] CARE PROXY
== END 2024-08-17 10:59 | disposition home or self-care (01) ==
LOC: HO.LAB 10:58
PROVIDERS: PCP Family Medicine; Visit Provider Family Medicine
DX: D64.9 Anemia, unspecified (principal); E11.9 Type 2 diabetes mellitus without complications
CPT/HCPCS: 36415; 82043; 82570; 82947; 83036; 83540; 85025

== ENCOUNTER 2024-12-06 11:44 | Outpatient (REF) | payer MEDICARE, SELFPAY ==
[2024-12-06 13:21] LABS: Estimated Average Glucose 143 mg/dL; Hemoglobin A1c % 6.6 % (<6.0); Total Hemoglobin (HGBA1C) 3536.9197 umol/L
--- OUTSIDE RECORDS SUMMARY | 2024-12-06 13:26 | XMS_ITS | Referral Summary ---
Author Organization [facility] Address [address] [place] [address] Care Team Providers Care Movement Assembly Final Inspector Name Role Phone Brian Macias Primary Care Provider [phone] Allergies No known active allergies Medications allopurinoL [...] Problem Noted Date Diagnosed Date Alcoholic cirrhosis 02/24/2024 Elevated serum creatinine 02/23/2024 Thrombocythemia 02/21/2024 SDH (subdural hematoma) 02/19/2024 Resolved Problems Problem Noted Date Diagnosed Date Resolved Date Alcohol withdrawal 02/21/2024 Social History Tobacco Use Types Packs/Day Years Used Date Smoking Tobacco: Never Passive Smoke Exposure: Never Smokeless Tobacco: Never Tobacco Cessation:Counseling Given: No Alcohol Use Standard Drinks/Week Comments Yes 5 (1 standard drink = 0.6 oz pur e alcohol) daily [facility] Utilities Answer Date Recorded In the past 12 months has e [employer], [employer], oil, or water [employer] threatened to shut off services in your [...] Not on file Procedures * Due to [place] [employer] law, this organization might not be sharing negative HIV tests. Procedure Name Priority Date/Time Associated Diagnosis Comments BASIC METABOLIC PANEL Routine 03/01/2024 6:35 AM EDT HEPATITIS PANEL, ACUTE Timed 02/19/2024 5:30 PM EDT from Last 3 Months or Most Recently Relevant to Health Maintenance Results * Due to [place] [employer] law, this organization might not be sharing negative HIV tests. * (ABNORMAL) Basic Metabolic Panel (03/01/2024 6:35 AM EDT) NA 139 135 - 145 mmol/L 03/01/2024 8:51 AM EDT [facility] K 3.1(L) 3.5 - 5.3 mmol/L 03/01/2024 8:51 AM EDT [facility] Cl 101 98 - 107 mmol/L 03/01/2024 8:51 AM EDT [facility] CO2 22(L) 24 - 32 mmol/L 03/01/2024 8:51 AM EDT [facility] BUN 17 7 - 23 mg/dL 03/01/2024 8:51 AM EDT [facility] Creatinine 1.65(H) 0.60 - 1.30 mg/dL 03/01/2024 8:51 AM EDT [facility] Glucose 92 65 - 99 mg/dL 03/01/2024 8:51 AM EDT [facility] Calcium 8.6 8.6 - 10.5 mg/dL 03/01/2024 8:51 AM EDT [facility] Anion Gap 16(H) 5 - 15 03/01/2024 8:51 AM EDT [facility] eGFR 44(L) >=60 mL/min/1 .73m2 03/01/2024 8:51 AM EDT [facility] Comment:The estimated glomer ular [...] 8:00 AM EDT us Arabia S. Gaston TELEPHONE QUOTATION CLERK LAB BLOOD ORDERABLES Final Re sult [facility] [address] [place] [address], [place] * Hepatitis Panel, Acute (02/19/2024 5:30 PM EDT) Hepatitis A IgM NON-REACT JOHNNY NON-REACT JOHNNY 02/20/2024 10:11 AM EDT [facility] Hepatitis B Surface Antigen NON-REACT JOHNNY NON-REACT JOHNNY 02/20/2024 10:11 AM EDT [facility] Hepatitis B Core Antibody NON-REACT JOHNNY NON-REACT JOHNNY 02/20/2024 10:11 AM EDT [facility] Hepatitis C Antibody NON-REACT JOHNNY NON-REACT JOHNNY 02/20/2024 10:11 AM EDT [facility] Comment: HCV antibody was non-reactive. There is no laboratory evidence of HCV infection. In most cases, no further action is required. However, if recent HCV exposure is suspected, a test for HCV RNA (test code 22521) is suggested. For additional information please refer to http://In[employer]ergy.[employer].light Design/faq/LPP25c1 (This link is being provided for informational/ educational purposes only.) For additional information, please refer to http://Invenergy.[employer] Design/faq/YPC893 (This link is being provided for informational/ educational purposes only.) Blood Structure of peripheral vein / Unknown Venipuncture / Unknown 02/19/2024 5:30 PM EDT 02/19/2024 5:42 PM EDT Narrative [facility] - 02/20/2024 10:11 AM EDT [facility] Received Date: us Josh Acharya DO LAB BLOOD ORDERABLES Final R esult [facility] [address] [facility] [address], [place] [address], [place] [phone] [facility] [address] [facility] [address], [place] [address], [place] [phone] from Last 3 Months or Most Recently Relevant to Health Maintenance Insurance BCBS MCR REPLACE PPO Advance Directives Documents on File Type Date Recorded Patient Marketing Outreach Coordinator Expl anation Health Care Proxy 02/23/2024 3:29 PM 2023 * Full Code (Latest Code Status on File) Date Activated Date Inactivated Comments 02/19/2024 10:58 AM 03/01/2024 6:30 PM Healthcare Agents on File Name Relationship Healthcare Agent Relationshi p Communication Lolis Tirado Spouse Health Care Agent Raisa Flowers Daughter Alternate Health Care Agent [email or web address] Care Teams Movement Assembly Final Inspector Relationship Specialty Start Date End Date Brian Macias [address] [place] [address] [place] [address] PCP - General Internal Medicine 02/25/24
[2024-12-06 13:37] LABS: Alanine Aminotransferase 17 U/L (0-40); Anion Gap 11 (12-20); Aspartate Amino Transferase 21 U/L (5-37); Blood Urea Nitrogen 15 mg/dL (9-16); Carbon Dioxide 25 mmol/L (22-29); Chloride 111 mmol/L (96-108); Cholesterol 122 mg/dL (<200); Estimated Glomerular Filt Rate 52; Glucose Fasting 129 mg/dL (60-99); HDL Cholesterol 44 mg/dL (>40); LDL Cholesterol Calculated 62 mg/dL (<100); Potassium 4.6 mmol/L (3.3-5.1); Sodium 142 mmol/L (135-145); Triglycerides 80 mg/dL (<150)
== END 2024-12-06 11:45 | disposition home or self-care (01) ==
LOC: HO.10HDL 11:44
PROVIDERS: Visit Provider Family Medicine
DX: I10 Essential (primary) hypertension (principal); E11.9 Type 2 diabetes mellitus without complications; E78.00 Pure hypercholesterolemia, unspecified; Z79.02 Long term (current) use of antithrombotics/antiplatelets
CPT/HCPCS: 36415; 80051; 80061; 82565; 82947; 83036; 84450; 84460; 84520

== ENCOUNTER 2025-03-03 11:01 | Outpatient (AMB) | payer MEDICARE, SELFPAY ==
--- NOTE | 2025-03-03 11:00 | A.OFFPC_ITS ---
Vital Signs 03/03/25 11:10 03/03/25 11:15 03/03/25 11:40 Height 5 ft 7 in 5 ft 7 in Weight 86.636 kg 86.636 kg BMI 29.9 29.9 BP 152/82 H 150/74 H Pulse 51 Pulse Source Pulse Oximeter Temp 98.0 F Pulse Oximetry (%) 99 Oxygen Delivery Method Room Air Intake Visit Reasons: 3 MO F/UP - ARZATE PT - NEEDS DR TERESA Lockstitch Zipper Setter Required: No Accompanied by: Spouse Allergies lisinopril (LISINOPRIL) Allergy (Unknown, Verified 03/03/25 11:00) RASH prednisone (PREDNISONE) Allergy (Unknown, Verified 03/03/25 11:00) INSOMNIA, insominia Medication List - Last Reconciled 03/03/25 by ORESTES Morris allopurinol 300 mg PO DAILY aspirin 81 mg PO DAILY docusate sodium 100 mg PO BID folic acid 1 mg PO DAILY furosemide 20 mg PO DAILY metoprolol succinate ER 50 mg PO DAILY multivitamin 1 tab PO DAILY omeprazole 20 mg PO DAILY PRN pyridoxine (vitamin B6) 50 mg PO DAILY simvastatin 40 mg PO BEDTIME thiamine HCl (vitamin B1) 100 mg PO BID Tobacco use date assessed: 03/03/25 Fall risk assessment: 1 Fall in past year Last assessed Fall Risk: 03/03/25 Dental Screening Dental Screen Date: 03/03/25 Did you have a dental visit in the last 12 months?: Yes Did you have a dental problem in the last 6 months where you did not have access to dental care?: No Was dental information given to patient?: No HPI HPI Comments History of Present Illness Details 69-year-old male with history of type 2 diabetes, gout, hypercholesterolemia, tinnitus, diaphragmatic hernia; history of hemorrhagic stroke, history of alcohol abuse presenting to the office today for management of chronic conditions and to establish care. Type 2 diabetes-due for A1c. Diet-controlled Gout-on allopurinol. Alcohol use disorder in remission-last drink over 1 year ago. He did complete rehab program. Was also diagnosed with Wernicke's encephalopathy by prior PCP. On thiamine and folic acid as well as pyridoxine. Had to brain hemorrhages while in rehab due to falls. He still has residual bilateral lower extremity weakness but is able to ambulate. Requires the assistance of the safety chair as well as climbing stairs. He is on a statin but is not taking ASA due to hemorrhage Hyperlipidemia-simvastatin GERD/diaphragmatic hernia-on omeprazole Elevated blood pressure readings-blood pressure is elevated initially and on recheck. She does bring a record of daily blood pressure readings which are all within normal limits and on review of last PCP note, has had normal blood pressure readings. We will continue monitoring. On metoprolol Concerns: Weight- walking 2.5 miles daily, chair exercises. reports he is eating too much sugar. Meals are overall controlled Health maintenance: Colonoscopy-declines PSA ordered ROS: General: No fevers, malaise, unintentional weight loss HEENT: No blurred vision, diplopia. No sore throat, nasal congestion, rhinorrhea, sinus pain, ear pain Cardiovascular: No chest pain, palpitations, or leg edema Respiratory: No shortness of breath, wheezing, cough GI: No abdominal pain, nausea, vomiting, diarrhea, constipation, melena, hematochezia : No dysuria, hematuria, increased urinary frequency, decreased urinary output MSK: No myalgia, back pain Neuro: No headaches, weakness, paresthesias Skin: No rashes or lesions EXAM: Constitutional - Awake and Alert, No apparent distress Eyes - PERRL Cardiovascular - S1S2, RRR, No edema Respiratory - Normal lung expansion, Normal respiratory effort, No respiratory distress, CTA bilaterally Extremities - no calf tenderness bilaterally, no swelling Skin - Warm/Dry Neurological - Alert & oriented x3 Psychological - Appropriate affect PFSH Medical History Type 2 diabetes mellitus Hemorrhagic stroke History of CVA (cerebrovascular accident) On beta jennifer at home Hiatal hernia GERD (gastroesophageal reflux disease) Gout High cholesterol HTN (hypertension) ETOH abuse Surgical History History of right inguinal hernia repair (06/01/23) History of oral surgery History of esophagogastroduodenoscopy (EGD) History of appendectomy H/O hernia repair Family History Mother History of breast cancer Social History Housing: Apartment Are you a primary post acute care registered nurse to a significant other at home: No Do you presently have visiting nurse or other home services: No Alcohol intake: current Alcohol intake frequency: 3 or more drinks per day Alcohol type: hard liquor Patient Tobacco Use Status: Never used Tobacco e-Cigarette/Vaping Use: Never Used service: No Current occupational status: retired Cognitive needs: Yes ([employer]) Hearing needs: No Vision needs: Yes (Rx glasses) Physical exam (Primary Care) Vital Signs: Last Vital Signs Temp 98.0 F 03/03/25 11:15 Pulse 51 03/03/25 11:15 BP 150/74 H 03/03/25 11:40 Pulse Ox 99 03/03/25 11:15 Oxygen Delivery Method Room Air 03/03/25 11:15 BMI result Body Mass Index 29.9 Tobacco/Smoking Status: Tobacco use Status Tobacco use date assessed 03/03/25 03/03/25 11:10 Patient Tobacco Use Status Never used Tobacco 03/03/25 11:00 e-Cigarette/Vaping Use Never Used 03/03/25 11:10 Coding Level of Care Code New Pt Level 4 (37226) Complex EM visit Add On G2211 Diagnoses HTN (hypertension) I10 High cholesterol E78.00 Gout M10.9 ETOH abuse F10.10 Type 2 diabetes mellitus E11.9 Assessment & Plan Assessment & Plan (1) HTN (hypertension): Code(s): I10 - Essential (primary) hypertension Category: Medical (2) High cholesterol: Code(s): E78.00 - Pure hypercholesterolemia, unspecified Category: Medical (3) Gout: Code(s): M10.9 - Gout, unspecified Category: Medical (4) ETOH abuse: Code(s): F10.10 - Alcohol abuse, uncomplicated Category: Medical Plan: In remission., ended on sobriety this far. No evidence of Wernicke's. Continue thiamine, pyridoxine, folic acid (5) Type 2 diabetes mellitus: Code(s): E11.9 - Type 2 diabetes mellitus without complications Category: Medical Plan: Previously controlled with A1c 6.6. Hemoglobin A1c ordered. Continue diabetic diet, annual eye exams and foot exams. We will also check creatinine/microalbumin Plan Follow-up in the office in 4 months. Labs to be completed following visit today Orders: Orders Lipid Panel Today E78.00 - Pure hypercholesterolemia, unspecified, I10 - Essential (primary) hypertension, M10.9 - Gout, unspecified Liver Panel Today E78.00 - Pure hypercholesterolemia, unspecified, I10 - Essential (primary) hypertension, M10.9 - Gout, unspecified Complete Blood Count Auto Diff Today E78.00 - Pure hypercholesterolemia, unspecified, I10 - Essential (primary) hypertension, M10.9 - Gout, unspecified Prostate Specific Antigen Today E78.00 - Pure hypercholesterolemia, unspecified, I10 - Essential (primary) hypertension, M10.9 - Gout, unspecified Hemoglobin A1c Today E78.00 - Pure hypercholesterolemia, unspecified, F10.10 - Alcohol abuse, uncomplicated, I10 - Essential (primary) hypertension, I61.9 - Nontraumatic intracerebral hemorrhage, unspecified, M10.9 - Gout, unspecified, Z86.73 - Personal history of transient ischemic attack (TIA), and cerebral infarction without residual deficits Microalbumin, Random (w Creat) Today E78.00 - Pure hypercholesterolemia, unspecified, F10.10 - Alcohol abuse, uncomplicated, I10 - Essential (primary) hypertension, I61.9 - Nontraumatic intracerebral hemorrhage, unspecified, M10.9 - Gout, unspecified, Z86.73 - Personal history of transient ischemic attack (TIA), and cerebral infarction without residual deficits Basic Metabolic Panel Today E78.00 - Pure hypercholesterolemia, unspecified, I10 - Essential (primary) hypertension, M10.9 - Gout, unspecified Medications: New docusate sodium 100 mg PO BID 180 caps 1RF omeprazole 20 mg PO DAILY PRN 90 caps 1RF reflux
[2025-03-03 11:10] VITALS: BMI 29.9
[2025-03-03 11:15] VITALS: BP 152/82; PULSE 51; TEMP 36.7; O2SAT 99; BMI 29.9
[2025-03-03 11:40] VITALS: BP 150/74
--- OUTSIDE RECORDS SUMMARY | 2025-03-03 12:48 | XMS_ITS | Clinical Summary ---
Author Organization [facility] Address [address] [place] [address] Care Team Providers Care Hairspring Adjuster Name Role Phone Brian Macias Primary Care Provider [phone] Allergies No known active allergies Medications allopurinoL [...] = 0.6 oz pur e alcohol) daily [facility] Utilities Answer Date Recorded In the past 12 months has e Portal [employer], [employer], oil, or water [employer] threatened to shut off services in your [...] 83 03/01/2024 3:34 PM EDT Temperature 36.4 C (97.6 F) 03/01/2024 3:34 PM EDT Respiratory Rate 18 03/01/2024 3:34 PM EDT [...] - Risk 60-74 years 1-dose series) 2013 Alcohol/Substance Use Screening 06/22/2024 Depression Screening and Follow-Up 06/22/2024 Health Care Proxy Review 06/22/2024 Social Drivers of Health Farzana ual Screening 06/22/2024 COVID-19 Vaccine ( - season) 2025 05/04/2021, 09/22/2020, 08/31/2020 Influenza Vaccine (#1) 2025 Hepatitis C Screening Completed 02/19/2024 Procedures * Due to [place] law, this organization might not be sharing negative HIV tests. Procedure Name Priority Date/Time Associated Diagnosis Comments HEPATITIS PANEL, ACUTE Timed 02/19/2024 5:30 PM EDT from Last 3 Months or Most Recently Relevant to Health Maintenance Results * Due to [place] law, this organization might not be sharing negative HIV tests. * Hepatitis Panel, Acute (02/19/2024 5:30 PM EDT) Hepatitis A IgM NON-REACT JOHNNY NON-REACT JOHNNY 02/20/2024 10:11 AM EDT [facility] Hepatitis B Surface Antigen NON-REACT JOHNNY NON-REACT JOHNNY 02/20/2024 10:11 AM EDT [facility] Hepatitis B Core Antibody NON-REACT JOHNNY NON-REACT JOHNNY 02/20/2024 10:11 AM EDT [facility] Hepatitis C Antibody NON-REACT JOHNNY NON-REACT JOHNNY 02/20/2024 10:11 AM EDT [facility] Comment: HCV antibody was non-reactive. There is no laboratory evidence of HCV infection. In most cases, no further action is required. However, if recent HCV exposure is suspected, a test for HCV RNA (test code 86047) is suggested. For additional information please refer to http://Trippy.Door 6/faq/KWO89c0 (This link is being provided for informational/ educational purposes only.) For additional information, please refer to http://Trippy.Door 6/faq/MGE340 (This link is being provided for informational/ educational purposes only.) Blood Structure of peripheral vein / Unknown Venipuncture / Unknown 02/19/2024 5:30 PM EDT 02/19/2024 5:42 PM EDT Narrative [facility] [place] - 02/20/2024 10:11 AM EDT [facility] Received Date: Josh Acharya DO LAB BLOOD ORDERABLES Final R esult ANISH CASTELLANOS [address], [place] [address], [place] [phone] [facility] [address], [address] [place] [address], [place] [phone] from Last 3 Months or Most Recently Relevant to Health Maintenance Insurance [employer] M[employer] PPO Advance Directives Documents on File Type Date Recorded Patient Timber Management Professor Expl anation Health Care Proxy 02/23/2024 3:29 PM 2023 * Full Code (Latest Code Status on File) Date Activated Date Inactivated Comments 02/19/2024 10:58 AM 03/01/2024 6:30 PM Healthcare Agents on File Name Relationship Healthcare Agent Relationshi p Communication Lolis Tirado Spouse Health Care Agent Raisa Flowers Daughter Alternate Health Care Agent [email or web address] Care Teams Hairspring Adjuster Relationship Specialty Start Date End Date Brian Macias [address] [place] [address] [place] [address] PCP - General Internal Medicine 02/25/24
--- OUTSIDE RECORDS SUMMARY | 2025-03-03 12:48 | XMS_ITS | Patient Health Record ---
Author Organization [facility] Address [address] [place] [address] Care Team Providers Care Sourcer Name Role Phone Gilberto (RETIRED) Brian LA Primary Care Provider Unavailable Kt Wilson Unavailable [phone] SUNDEEP VEGA Unavailable Unavailable Reason For Referral No Information Medications Medication SIG (Take, Route, Frequency, Duration) Notes Start Date End Date Status Omeprazole 20 MG TAKE ONE CAPSULE BY MOUTH EVERY DAY IN THE MORNING for 90 Please tell patient that he needs to schedule an office visit with me. Active Plan Of Treatment No Information Insurance Providers Payer Name Payer Address Payer Phone Subscriber Number Group Number Insured Name Patient Relationship to Insured Coverage Start Date Coverage End Date [facility] [employer] [facility] [address] [address] [place], [place] [phone] [id number] ISABELLE ULLOA Self - patient is the insured
--- OUTSIDE RECORDS SUMMARY | 2025-03-03 12:48 | XMS_ITS | Clinical Summary ---
Author Organization [facility] [place] [address] Care Team Providers Care Editor Department Name Role Phone Unavailable Primary Care Provider [...] 2003 Zoster Vaccines (1 of 2) 2003 Abdominal Aortic Aneurysm (A AA) Screen 04/15/2024 Cholesterol Screening (Lipid Panel) 04/15/2024 Colorectal Cancer Screening: Colonoscopy 04/15/2024 Falls Risk Assessment 04/15/2024 Hepatitis C Screening 04/15/2024 Social Influencers of Health Screening 04/15/2024 Depression Screening 06/22/2024 COVID-19 Vaccine ( - 2023-2 5 season) 2025 Influenza Vaccine (#1) 2025 RSV Immunization Adult Patie nts (1 - 1-dose 75+ series) 2028 HIB [...] age to complete this topic Meningococcal B Vaccine Aged Out No l onger eligible based on patient's age to complete this topic RSV Immunization Patients Un leslye 20 months Aged Out No longer eligible b ased on patient's age to complete this topic Varicella Vaccines Aged Out No longer eligible based on patient's age to complete this topic Advance Directives Documents on File Type Date Recorded Patient Infantry Weapons Crewmember Expl anation Health Care Decision (hx) 04/15/2024 AD HOLLEY DIRECTIVE Health Care Decision (hx) 03/24/2024 HE ALTH CARE PROXY
== END 2025-03-03 11:59 | disposition home or self-care (01) ==
LOC: HO.HMCHD 11:01
PROVIDERS: PCP Family Medicine; Visit Provider Physician Assistant
DX: I10 Essential (primary) hypertension (principal); E78.00 Pure hypercholesterolemia, unspecified; M10.9 Gout, unspecified; F10.10 Alcohol abuse, uncomplicated; E11.9 Type 2 diabetes mellitus without complications

== ENCOUNTER → 2025-03-03 11:01 | Outpatient (BNVA) | payer MEDICARE, SELFPAY | PROVIDERS: PCP Family Medicine; Visit Provider Physician Assistant | DX: I10 Essential (primary) hypertension (principal); E78.00 Pure hypercholesterolemia, unspecified; M10.9 Gout, unspecified; F10.10 Alcohol abuse, uncomplicated; E11.9 Type 2 diabetes mellitus without complications; K21.9 Gastro-esophageal reflux disease without esophagitis; K44.9 Diaphragmatic hernia without obstruction or gangrene; Z79.899 Other long term (current) drug therapy | CPT/HCPCS: 99202 ==

== ENCOUNTER 2025-03-03 12:04 | Outpatient (REF) | payer MEDICARE, SELFPAY ==
[2025-03-03 13:25] LABS: MANUAL DIFF FLAG NO
[2025-03-03 13:35] LABS: Hematocrit 38.8 % (42.0-52.0); Hemoglobin 13.4 g/dl (14.0-18.0); Imm Gran Abs Auto 0.02 X10*3/uL (0.00-0.03); Imm Gran Pct Auto 0.2 % (0.0-0.4); Lymphocytes Absolute Auto 2.0 X10*3/uL (1.2-4.9); Mean Corpuscular HGB Conc 34.5 g/dl (31.0-36.0); Mean Corpuscular Hemoglobin 32.0 pg (27.0-33.0); Mean Corpuscular Volume 92.6 fL (80.0-98.0); NRBC Abs Auto 0.000 X10*3/uL (0.0-0.012); NRBC Pct Auto 0.0 /100WBC (0.0-0.2); Platelet Count 177 X10*3/uL (160-400); Red Blood Count 4.19 X10*6/uL (4.60-5.80); White Blood Count 8.6 X10*3/uL (4.8-10.8)
[2025-03-03 13:47] LABS: Hemoglobin A1C 174.9749 umol/L; Total Hemoglobin (HGBA1C) 3524.9290 umol/L
[2025-03-03 14:16] LABS: Alanine Aminotransferase 15 U/L (0-40); Albumin Level 4.9 g/dL (3.5-5.0); Alkaline Phosphatase 70 U/L (39-117); Anion Gap 10 (12-20); Aspartate Amino Transferase 20 U/L (5-37); Blood Urea Nitrogen 17 mg/dL (9-16); Calcium 9.2 mg/dL (8.4-10.2); Carbon Dioxide 25 mmol/L (22-29); Chloride 109 mmol/L (96-108); Cholesterol 130 mg/dL (<200); Estimated Glomerular Filt Rate 45; HDL Cholesterol 43 mg/dL (>40); Potassium 4.4 mmol/L (3.3-5.1); Sodium 140 mmol/L (135-145); Total Protein 7.5 g/dL (6.5-8.0); Triglycerides 90 mg/dL (<150)
[2025-03-03 14:26] LABS: Prostate Specific Antigen 7.43 ng/mL (<0.05-4.0)
== END 2025-03-03 12:05 | disposition home or self-care (01) ==
LOC: HO.10HDL 12:04
PROVIDERS: Visit Provider Physician Assistant
DX: Z12.5 Encounter for screening for malignant neoplasm of prostate (principal); Z13.1 Encounter for screening for diabetes mellitus; I10 Essential (primary) hypertension; E78.00 Pure hypercholesterolemia, unspecified; M10.9 Gout, unspecified; F10.10 Alcohol abuse, uncomplicated; I61.9 Nontraumatic intracerebral hemorrhage, unspecified; Z86.73 Personal history of transient ischemic attack (TIA), and cerebral infarction without residual deficits
CPT/HCPCS: 36415; 80048; 80061; 80076; 83036; 84153; 85025